=== PATIENT | male | born 1980 | race African-American/Black ===

== ENCOUNTER 2018-07-07 07:13 | Emergency (ER) | payer SELFPAY ==
[~2018-07-07] VITALS: Ht 182.9 cm; Wt 108.9 kg
[2018-07-07 07:52] LABS: BASO # 0.1 x10^3/uL (0.0-0.2); BASO % 1 % (0-3); EOS # 0.1 x10^3/uL (0.0-0.7); EOS % 1 % (0-3); HEMATOCRIT 41.9 % (39.0-53.0); HEMOGLOBIN 13.9 g/dL (13.0-17.5); LYMPH % 23 % (24-48); MEAN CORPUSCULAR HEMOGLOBIN 27 pg (25-35); MEAN CORPUSCULAR HGB CONC 33 g/dL (31-37); MEAN CORPUSCULAR VOLUME 82 fL (79-100); MONO # 0.6 x10^3/uL (0.0-1.1); MONO % 7 % (0-9); NEUT # 6.1 x10^3uL (1.8-7.7); NEUT % 68 % (31-73); PLATELET COUNT 246 x10^3/uL (140-400); RED BLOOD COUNT 5.12 x10^6/uL (4.30-5.70); RED CELL DISTRIBUTION WIDTH 14.5 % (11.5-14.5); WHITE BLOOD COUNT 8.9 x10^3/uL (4.0-11.0)
--- NOTE | 2018-07-07 07:59 | EKG ---
[facility] [address] [place] [address] Test Date: 2018-07-07 Test Time: 07:53:17 Pat Name: ROSALIA PENA Department: Room: Gender: M Supervisor Felting: : 1980 Requested By: JOSHUA WADDELL Order Number: [id number] Reading MD: Measurements Intervals [place] Rate: 107 P: 64 CA: 142 QRS: 76 QRSD: 84 T: 16 QT: 340 QTc: 459 Interpretive Statements SINUS TACHYCARDIA QRS(T) CONTOUR ABNORMALITY CONSIDER ANTEROLATERAL MYOCARDIAL DAMAGE POSSIBLY ABNORMAL ECG RI6.01 No previous ECG available for comparison
[2018-07-07 08:03] LABS: CREATININE 1.3 mg/dL (0.7-1.3); GFR 61.1; POTASSIUM 3.4 mmol/L (3.5-5.1)
[2018-07-07 08:09] LABS: ALBUMIN 3.7 g/dL (3.4-5.0); ALBUMIN/GLOBULIN RATIO 0.9 (1.0-1.7); MAGNESIUM 1.9 mg/dL (1.8-2.4); TOTAL BILIRUBIN 0.2 mg/dL (0.2-1.0)
[2018-07-07 09:57] LABS: BILIRUBIN,URINE NEGATIVE (NEG); CLARITY,URINE CLEAR; COLOR,URINE YELLOW; NITRITE,URINE NEGATIVE (NEG); PROTEIN,URINE NEGATIVE (NEG-TRACE)
[2018-07-07 10:05] LABS: BACTERIA,URINE MODERATE /HPF (0-FEW); SQUAMOUS EPITHELIAL CELL,UR OCC /LPF
[2018-07-07 10:06] LABS: BARBITURATES NEG (NEG); BENZODIAZEPINES NEG (NEG); CANNABINOIDS NEG (NEG); COCAINE NEG (NEG); METHADONE NEG (NEG); OPIATES NEG (NEG); PHENCYCLIDINE POS (NEG); TRICHOMONAS,URINE PRESENT
[2018-07-07 10:07] LABS: AMPHETAMINE/METHAMPHETAMINE NEG (NEG)
[2018-07-07 11:20] VITALS: BP 145/86
--- NOTE | 2018-07-07 11:22 | PHYS DOC ---
Past Medical History Past Medical History: No Pertinent History Past Surgical History: No Surgical History Additional Information: 5 CIGS/DAY Alcohol Use: Rarely Drug Use: Phencyclidine Adult General Chief Complaint Chief Complaint: ALTERED MENTAL STATUS HPI HPI Patient is a 38-year-old male who presents via EMS after reportedly being found running around naked near high school. Patient states that he had a pretty rough shift and so he decided to go home and smoke some "wet". EMS reports that initially patient was little combative but rapidly calmed down. At this time, patient does not recall the incident. He denies any chest pain or shortness of breath. Denies any headache or weakness. Review of Systems Review of Systems Constitutional: Denies fever or chills [] Eyes: Denies change in visual acuity, redness, or eye pain [] Respiratory: Denies cough or shortness of breath [] Cardiovascular: No additional information not addressed in HPI [] GI: Denies abdominal pain, nausea, vomiting or diarrhea [] Musculoskeletal: Denies back pain or joint pain [] All other systems were reviewed and found to be within normal limits, except as documented in this note. Allergies Allergies Allergies Coded Allergies Type Severity Reaction Last Updated Verified No Known Drug Allergies 07/07/18 No Physical Exam Physical Exam Constitutional: Well developed, well nourished, no acute distress, non-toxic appearance. [] HENT: Normocephalic, atraumatic, bilateral external ears normal, oropharynx moist, no oral exudates, nose normal. [] Eyes: PERRLA, EOMI, conjunctiva normal, no discharge. [] Neck: Normal range of motion, no tenderness, supple, no stridor. [] Cardiovascular: Regular rate and rhythm, no murmur [] Lungs & Thorax: Bilateral breath sounds clear to auscultation [] Abdomen: Bowel sounds normal, soft, no tenderness. [] Skin: Warm, dry, no erythema, no rash. [] Extremities: No tenderness, no cyanosis, no clubbing, ROM intact, no edema. [] Neurologic: Alert and oriented X 3, normal motor function, normal sensory function, no focal deficits noted. [] Psychologic: Affect normal, mood normal. [] Current Patient Data Vital Signs Vital Signs Date Time Temp Pulse Resp B/P (MAP) Pulse Ox O2 Delivery O2 Flow Rate FiO2 07/07/18 11:20 79 18 98 12/20/18 07:20 97.7 157/92 (113) Room Air 97.7 Lab Values Laboratory Tests Test 07/07/18 07:41 07/07/18 09:40 White Blood Count 8.9 x10^3/uL (4.0-11.0) Red Blood Count 5.12 x10^6/uL (4.30-5.70) Hemoglobin 13.9 g/dL (13.0-17.5) Hematocrit 41.9 % (39.0-53.0) Mean Corpuscular Volume 82 fL (79-100) Mean Corpuscular Hemoglobin 27 pg (25-35) Mean Corpuscular Hemoglobin Concent 33 g/dL (31-37) Red Cell Distribution Width 14.5 % (11.5-14.5) Platelet Count 246 x10^3/uL (140-400) Neutrophils (%) (Auto) 68 % (31-73) Lymphocytes (%) (Auto) 23 % (24-48) L Monocytes (%) (Auto) 7 % (0-9) Eosinophils (%) (Auto) 1 % (0-3) Basophils (%) (Auto) 1 % (0-3) Neutrophils # (Auto) 6.1 x10^3uL (1.8-7.7) Lymphocytes # (Auto) 2.0 x10^3/uL (1.0-4.8) Monocytes # (Auto) 0.6 x10^3/uL (0.0-1.1) Eosinophils # (Auto) 0.1 x10^3/uL (0.0-0.7) Basophils # (Auto) 0.1 x10^3/uL (0.0-0.2) Sodium Level 141 mmol/L (136-145) Potassium Level 3.4 mmol/L (3.5-5.1) L Chloride Level 102 mmol/L (98-107) Carbon Dioxide Level 25 mmol/L (21-32) Anion Gap 14 (6-14) Blood Urea Nitrogen 17 mg/dL (8-26) Creatinine 1.3 mg/dL (0.7-1.3) Estimated GFR (Cockcroft-Gault) 61.1 BUN/Creatinine Ratio 13 (6-20) Glucose Level 152 mg/dL (70-99) H Calcium Level 9.0 mg/dL (8.5-10.1) Magnesium Level 1.9 mg/dL (1.8-2.4) Total Bilirubin 0.2 mg/dL (0.2-1.0) Aspartate Amino Transferase (AST) 26 U/L (15-37) Alanine Aminotransferase (ALT) 57 U/L (16-63) Alkaline Phosphatase 109 U/L (46-116) Total Protein 8.0 g/dL (6.4-8.2) Albumin 3.7 g/dL (3.4-5.0) Albumin/Globulin Ratio 0.9 (1.0-1.7) L Ethyl Alcohol Level < 10 mg/dL (0-10) Urine Collection Type Unknown Urine Color Yellow Urine Clarity Clear Urine pH 6.0 Urine Specific [place] 1.015 Urine Protein Negative mg/dL (NEG-TRACE) Urine Glucose (UA) Negative mg/dL (NEG) Urine Ketones (Stick) Negative mg/dL (NEG) Urine Blood Trace (NEG) Urine Nitrite Negative (NEG) Urine Bilirubin Negative (NEG) Urine Urobilinogen Dipstick 1.0 mg/dL (0.2 mg/dL) Urine Leukocyte Esterase Small (NEG) Urine RBC 1-2 /HPF (0-2) Urine WBC 11-20 /HPF (0-4) Urine Squamous Epithelial Cells Occ /LPF Urine Bacteria Moderate /HPF (0-FEW) Urine Trichomonas Present Urine Opiates Screen Neg (NEG) Urine Methadone Screen Neg (NEG) Urine Barbiturates Neg (NEG) Urine Phencyclidine Screen Pos (NEG) Urine Amphetamine/Methamphetamine Neg (NEG) Urine Benzodiazepines Screen Neg (NEG) Urine Cocaine Screen Neg (NEG) Urine Cannabinoids Screen Neg (NEG) Urine Ethyl Alcohol Neg (NEG) Laboratory Tests 07/07/18 07:41 Laboratory Tests 07/07/18 07:41 EKG EKG [] Radiology/Procedures Radiology/Procedures [] Course & Med Decision Making Course & Med Decision Making Pertinent Labs and Imaging studies reviewed. (See chart for details) [] Dragon Disclaimer Dragon Disclaimer This electronic medical record was generated, in whole or in part, using a voice recognition dictation system. Departure Departure Impression: Primary Impression: Phencyclidine abuse Disposition: 01 HOME, SELF-CARE Condition: STABLE Referrals: NO PCP (PCP) Patient Instructions: Drug Abuse, FAQs JOSHUA WADDELL Jr. DO Jul 07, 2018 11:22
== END 2018-07-07 11:30 | disposition home or self-care (01) ==
LOC: ER 07:13
DX: F16.10 Hallucinogen abuse, uncomplicated (principal); F10.20 Alcohol dependence, uncomplicated; F17.210 Nicotine dependence, cigarettes, uncomplicated
CPT/HCPCS: 36415; 80053; 80307; 81001; 83735; 85025; 87086; 93005; 99284; G0480

== ENCOUNTER 2020-04-14 23:34 | Emergency (ER) | payer SELFPAY ==
[~2020-04-14] VITALS: Ht 185.4 cm; Wt 104.5 kg
[2020-04-14 23:55] VITALS: BP 158/92
--- NOTE | 2020-04-15 | PHYS DOC ---
Past Medical History Past Medical History: No Pertinent History Past Surgical History: No Surgical History Smoking Status: Current Every Day Smoker Alcohol Use: Rarely Drug Use: Phencyclidine General Adult EDM: Chief Complaint: DRUG ABUSE HPI: HPI: Patient is a 39 year old male presents via ems for evaluation due to altered mental status. 911 was call because patient was found naked on a porch. On arrival patient a/ox4- Patient admitted to smoking PCP prior to arrival. He states he was on his own porch and that his cloths are inside the house. Patient states he normally smokes 1 "stick" and that it should not have "messed him up" Patient this drugs could have possibly been laced with something else or stronger than normal. Patient has no complaints at this time. Review of Systems: Review of Systems: Constitutional: Denies fever or chills. [] Eyes: Denies change in visual acuity. [] HENT: Denies nasal congestion or sore throat. [] Respiratory: Denies cough or shortness of breath. [] Cardiovascular: Denies chest pain or edema. [] GI: Denies abdominal pain, nausea, vomiting, bloody stools or diarrhea. [] : Denies dysuria. [] Musculoskeletal: Denies back pain or joint pain. [] Integument: Denies rash. [] Neurologic: Denies headache, focal weakness or sensory changes. [] Endocrine: Denies polyuria or polydipsia. [] Lymphatic: Denies swollen glands. [] Psychiatric: Denies depression or anxiety. [] Heart Score: Risk Factors: Risk Factors: DM, Current or recent (<one month) smoker, HTN, HLP, family history of CAD, obesity. Risk Scores: Score 0 - 3: 2.5% MACE over next 6 weeks - Discharge Home Score 4 - 6: 20.3% MACE over next 6 weeks - Admit for Clinical Observation Score 7 - 10: 72.7% MACE over next 6 weeks - Early Invasive Strategies Allergies: Allergies: Allergies Coded Allergies Type Severity Reaction Last Updated Verified No Known Drug Allergies 07/07/18 No Physical Exam: PE: Constitutional: Well developed, well nourished, no acute distress, non-toxic appearance. [] HENT: Normocephalic, atraumatic, bilateral external ears normal, oropharynx moist, no oral exudates, nose normal. [] Eyes: PERRLA, EOMI, conjunctiva normal, no discharge. [] Neck: Normal range of motion, no tenderness, supple, no stridor. [] Cardiovascular:Heart rate regular rhythm, no murmur [] Lungs & Thorax: Bilateral breath sounds clear to auscultation [] Abdomen: Bowel sounds normal, soft, no tenderness, no masses, no pulsatile masses. [] Skin: Warm, dry, no erythema, no rash. [] Back: No tenderness, no CVA tenderness. [] Extremities: No tenderness, no cyanosis, no clubbing, ROM intact, no edema. [] Neurologic: Alert and oriented X 3, normal motor function, normal sensory function, no focal deficits noted. [] Psychologic: Affect normal, judgement normal, mood normal. [] Current Patient Data: Vital Signs: Vital Signs Date Time Temp Pulse Resp B/P (MAP) Pulse Ox O2 Delivery O2 Flow Rate FiO2 04/14/20 23:35 99.3 102 15 167/105 (125) 98 Room Air 99.3 EKG: EKG: [] Radiology/Procedures: Radiology/Procedures: [] Course & Med Decision Making: Course & Med Decision Making Pertinent Labs and Imaging studies reviewed. (See chart for details) []Patient a/ox4. Admits to smoke PCP prior to arrival. Patient with no complaints. His vital signs are stable. Patient to be discharged home. Lisette Disclaimer: Lisette Disclaimer: This electronic medical record was generated, in whole or in part, using a voice recognition dictation system. Departure Departure Impression: Primary Impression: PCP (phencyclidine) abuse Disposition: HOME/RESIDENCE PRIOR TO ADM Condition: STABLE Patient Instructions: Drug Abuse, FAQs, Altered Mental Status Justicifation of Admission Dx: Justifications for Admission: Justification of Admission Dx: N/A MARLO LYNCH DO Apr 15, 2020 00:00
== END 2020-04-15 00:01 | disposition home or self-care (01) ==
LOC: ER 23:34
DX: F16.10 Hallucinogen abuse, uncomplicated (principal); R41.82 Altered mental status, unspecified; F17.200 Nicotine dependence, unspecified, uncomplicated
CPT/HCPCS: 99283

== ENCOUNTER 2020-04-24 19:04 | Inpatient (IN) | payer SELFPAY ==
[~2020-04-24] VITALS: Ht 185.4 cm; Wt 106.1 kg
[2020-04-24] MEDS ORDERED: ZIPRASIDONE IM 20 MG VIAL. IM ONE (19:15)
--- NOTE | 2020-04-24 19:20 | PHYS DOC ---
Past Medical History Past Medical History: No Pertinent History Past Surgical History: No Surgical History Smoking Status: Current Every Day Smoker Alcohol Use: Rarely Drug Use: Phencyclidine General Adult EDM: Chief Complaint: ALTERED MENTAL STATUS HPI: HPI: 39-year-old male unknown past medical history, brought in by EMS after bystander called 911, found patient acting erratic and disorganized in the streets. Patient became combative upon police arriving at scene and patient was given 250 mg IM of ketamine prior to arrival. Upon ED arrival patient with copious oral secretions, protecting his airway, is nonverbal. Patient is agitated and unable to verbally de-escalate. Patient was medicated for his medical evaluation, his and staff safety. EMS reports temp of 100.4, pt was diaphoretic on scene, suspect wet. Review of Systems: Review of Systems: ROS: Unable to be obtained due to mental status on arrival Heart Score: Risk Factors: Risk Factors: DM, Current or recent (<one month) smoker, HTN, HLP, family history of CAD, obesity. Risk Scores: Score 0 - 3: 2.5% MACE over next 6 weeks - Discharge Home Score 4 - 6: 20.3% MACE over next 6 weeks - Admit for Clinical Observation Score 7 - 10: 72.7% MACE over next 6 weeks - Early Invasive Strategies Current Medications: Current Medications Medications (Trade) Dose Ordered Sig/Jose Start Time Stop Time Status Last Admin Dose Admin Sodium Chloride 1,000 ml @ 1,000 mls/hr 1X ONCE 04/24/20 19:30 04/24/20 20:29 Ziprasidone (Geodon Im) 20 mg 1X ONCE 04/24/20 19:15 04/24/20 19:16 DC 04/24/20 19:13 20 MG Allergies: Allergies: Allergies Coded Allergies Type Severity Reaction Last Updated Verified No Known Drug Allergies 07/07/18 No Physical Exam: PE: Constitutional: afebrile, obese HENT: Normocephalic, atraumatic, bilateral external ears normal, oropharynx moist, increase oral secretions, Eyes: PERRLA, EOMI, conjunctiva normal, no discharge. [] Neck: Normal range of motion, no tenderness, supple, no stridor. [] Cardiovascular: Tachycardic, no murmur [] Lungs & Thorax: Bilateral breath sounds clear to auscultation []protecting airway Abdomen: Bowel sounds normal, soft, no tenderness, no masses, no pulsatile masses. [] Skin: Warm, dry, no erythema, no rash. [] Extremities: No tenderness, no cyanosis, no clubbing, ROM intact, no edema. [] no clonus, no rigidity Neurologic: nonverbal on arrival-groans, E2V2M5, GCS9,no focal deficits noted. [] Psychologic: unable to be assessed EKG: EKG: [] Radiology/Procedures: Radiology/Procedures: [] IMAGING REPORT Signed PATIENT: ANASTASIA RICHMOND: [id number] : 1980 LOCATION: ER AGE: 39 SEX: M EXAM STATUS: REG ER ORD. PHYSICIAN: LILY MARCIAL DO REASON: ams PROCEDURE: CT HEAD WO CONTRAST CT head without contrast PQRS statement: CT scans at this facility use dose reduction including either automated exposure control, iterative reconstructions, and /or weight based radiation dosing via mA and kV modification when appropriate to reduce radiation dose to as low as reasonably achievable. HISTORY: Altered mental status. FINDINGS: No intracranial hemorrhage, mass, hydrocephalus, extra-axial fluid collections or infarction. No acute ischemic changes. Orbits, mastoids and bones are unremarkable. Subcentimeter left frontal sinus osteoma. IMPRESSION: No acute abnormality. Electronically signed by: El Barajas MD (04/24/2020 11:03 PM) [facility] [place] DICTATED and SIGNED BY: EL BARAJAS MD DATE: 04/24/20 230 IMAGING REPORT Signed PATIENT: ANASTASIA RICHMOND: [id number] : 1980 LOCATION: ER AGE: 39 SEX: M EXAM STATUS: PRE ER ORD. PHYSICIAN: LILY MARCIAL DO REASON: ams PROCEDURE: CHEST AP ONLY Single view chest dated 04/24/2020. No comparison available. CLINICAL INDICATION: Altered mental status. FINDINGS: Heart size within normal limits. Lungs are clear. No consolidation or pleural effusion. No pneumothorax. IMPRESSION: No acute findings. Electronically signed by: Ephraim Espinoza MD (04/24/2020 7:45 PM) [facility] DICTATED and SIGNED BY: EPHRAIM ESPINOZA MD DATE: 04/24/201944 IMAGING REPORT Signed PATIENT: ANASTASIA RICHMOND: [id number] : 1980 LOCATION: ER AGE: 39 SEX: M EXAM STATUS: REG ER ORD. PHYSICIAN: LILY MARCIAL DO REASON: elbow pain s/p restraints PROCEDURE: ELBOW BILAT 3V Exam: Bilateral elbows 3 views INDICATION: Elbow pain, status post restraints TECHNIQUE: Frontal, lateral and oblique views of the right and left elbow Comparisons: None FINDINGS: Right elbow: Bone mineralization is normal. No acute or healed fractures. Soft tissues are unremarkable. Joint spaces are well-maintained. Left elbow: Bone mineralization is normal. No acute or healed fractures. Soft tissues are unremarkable. Joint spaces are well-maintained. IMPRESSION: 1. No acute osseous abnormality of the right elbow. 2. No acute osseous abnormality of the left elbow. Electronically signed by: Joanna Walker MD (04/24/2020 10:14 PM) [facility] DICTATED and SIGNED BY: JOANNA WALKER MD DATE: 04/24/20 9024 Course & Med Decision Making: Course & Med Decision Making Pertinent Labs and Imaging studies reviewed. (See chart for details) On re-evaluation, pt with [facility], alert and oriented x3, admits to smoking when earlier tonight. No prior history of diabetes. Was informed of concern for DKA-patient accepts plan for admission. Patient also with acute kidney injury, polysubstance abuse, contaminated urinalysis but will treat for UTI. Will admit to ICU for further medical management. I have spoken with the patient and/or caregivers. I have explained the patient's condition, diagnosis and treatment plan based on the information available to me at this time. I have answered the patient's and/or caregivers questions and answered any concerns. The patient and/or caregivers have as good an understanding of the patient's diagnosis, condition and treatment plan as can be expected at this point. The patient has been stabilized within the capability of the emergency department. The patient will be transported for further care and management or will be moved to an observation or inpatient service. I have communicated with the staff or medical practitioner taking over this patient's care. Critical Care: Authorized and Performed by: Lily Marcial DO Total critical care time: approximately 60 minutes Due to a high probability of clinically significant, life threatening deterioration, the patient required my highest level of preparedness to intervene emergently and I personally spent this critical care time directly and personally managing the patient. This critical care time included obtaining a history; examining the patient; pulse oximetry; ventilator management if necessary; ordering and review of studies; arranging urgent treatment with development of a management plan; evaluation of patient's response to treatment; frequent reassessment; discussion with patient/family; and, discussions with other providers. This critical care time was performed to assess and manage the high probability of imminent, life-threatening deterioration that could result in multi-organ failure. It was exclusive of separately billable procedures and treating other patients and teaching time. Please see MDM section and the rest of the note for further information on patient assessment and treatment. Dragon Disclaimer: Dragon Disclaimer: This electronic medical record was generated, in whole or in part, using a voice recognition dictation system. Departure Departure Impression: Primary Impression: DKA (diabetic ketoacidoses) Additional Impressions: SABA (acute kidney injury) Polysubstance abuse UTI (urinary tract infection) Diabetes mellitus, new onset Agitation requiring sedation protocol Disposition: ADMITTED INPATIENT Admitting Physician: LOREN (Dr. Bedoya) Condition: CRITICAL Referrals: NO PCP (PCP) LILY MARCIAL DO Apr 24, 2020 19:20
[2020-04-24] MEDS ORDERED: IV NORMAL SALINE 1000ML BAG 1,000 ML IV ONE ×2 (19:30→21:00)
[2020-04-24 19:32] LABS: BASO # 0.2 x10^3/uL (0.0-0.2); BASO % 1 % (0-3); EOS # 0.2 x10^3/uL (0.0-0.7); EOS % 1 % (0-3); HEMATOCRIT 54.8 % (39.0-53.0); HEMOGLOBIN 17.2 g/dL (13.0-17.5); LYMPH # 5.8 x10^3/uL (1.0-4.8); LYMPH % 40 % (24-48); MEAN CORPUSCULAR HEMOGLOBIN 27 pg (25-35); MEAN CORPUSCULAR HGB CONC 31 g/dL (31-37); MEAN CORPUSCULAR VOLUME 87 fL (79-100); MONO # 1.2 x10^3/uL (0.0-1.1); MONO % 8 % (0-9); NEUT # 7.1 x10^3/uL (1.8-7.7); NEUT % 50 % (31-73); PLATELET COUNT 315 x10^3/uL (140-400); RED BLOOD COUNT 6.28 x10^6/uL (4.30-5.70); RED CELL DISTRIBUTION WIDTH 14.7 % (11.5-14.5); WHITE BLOOD COUNT 14.4 x10^3/uL (4.0-11.0)
--- NOTE | 2020-04-24 19:48 | RAD ---
Single view chest dated 04/24/2020. No comparison available. CLINICAL INDICATION: Altered mental status. FINDINGS: Heart size within normal limits. Lungs are clear. No consolidation or pleural effusion. No pneumothorax. IMPRESSION: No acute findings. Electronically signed by: Ephraim Dong MD (04/24/2020 7:45 PM) [facility]
[2020-04-24 19:52] LABS: ALBUMIN 4.7 g/dL (3.4-5.0); ALBUMIN/GLOBULIN RATIO 0.8 (1.0-1.7); CALCIUM 11.3 mg/dL (8.5-10.1); GFR 44.8; POTASSIUM 4.6 mmol/L (3.5-5.1); TOTAL BILIRUBIN 0.2 mg/dL (0.2-1.0); TOTAL PROTEIN 10.3 g/dL (6.4-8.2)
[2020-04-24 19:58] LABS: AMPHETAMINE/METHAMPHETAMINE NEG (NEG); BARBITURATES NEG (NEG); BENZODIAZEPINES NEG (NEG); CANNABINOIDS POS (NEG); COCAINE POS (NEG); METHADONE NEG (NEG); OPIATES NEG (NEG); PHENCYCLIDINE POS (NEG)
[2020-04-24 20:53] LABS: BILIRUBIN,URINE SMALL (NEG); CLARITY,URINE CLEAR; COLOR,URINE YELLOW; NITRITE,URINE NEGATIVE (NEG); PH,URINE 5.5 (<5.0-8.0); PROTEIN,URINE 30 mg/dL (NEG-TRACE)
[2020-04-24 20:58] LABS: WBC,URINE 20-40 /HPF (0-4)
[2020-04-24 20:59] LABS: TRICHOMONAS,URINE PRESENT
[2020-04-24] MEDS ORDERED: diphenhydrAMINE 50 MG/ML VIAL IVP ONE (21:00)
[2020-04-24] MEDS ORDERED: MIDAZOLAM HCL/PF 5 MG/5 ML VIAL. IV ONE (21:00)
[2020-04-24 21:01] LABS: BACTERIA,URINE FEW /HPF (0-FEW)
[2020-04-24 21:01] LABS: MAGNESIUM 3.5 mg/dL (1.8-2.4); PHOSPHORUS 2.1 mg/dL (2.6-4.7)
[2020-04-24 21:02] LABS: HYALINE CASTS, URINE OCCASIONAL /HPF
[2020-04-24 21:15] LABS: ISTAT HCO3 VEN 15 mmol/L (24-28); ISTAT PCO2 VEN 35 mmHg (41-51); ISTAT PH VEN 7.25 (7.32-7.42); ISTAT PO2 VEN 44 mmHg (20-40); ISTAT TCO2 VEN 16 mmol/L (21-32)
[2020-04-24 21:16] LABS: FIO2 VENOUS ISTAT 21; ISTAT SAT O2 VEN 73 %
[2020-04-24] MEDS ORDERED: MORPHINE SULFATE 2 MG/ML VIAL. IV PRN (22:00)
[2020-04-24] MEDS ORDERED: INSULIN,REGULAR 100 UNIT DRIP 100 ML IV ONE (22:00)
[2020-04-24] MEDS ORDERED: ONDANSETRON PF 4 MG/2 ML VIAL. IV PRN (22:00)
--- NOTE | 2020-04-24 22:17 | RAD ---
Exam: Bilateral elbows 3 views INDICATION: Elbow pain, status post restraints TECHNIQUE: Frontal, lateral and oblique views of the right and left elbow Comparisons: None FINDINGS: Right elbow: Bone mineralization is normal. No acute or healed fractures. Soft tissues are unremarkable. Joint spaces are well-maintained. Left elbow: Bone mineralization is normal. No acute or healed fractures. Soft tissues are unremarkable. Joint spaces are well-maintained. IMPRESSION: 1. No acute osseous abnormality of the right elbow. 2. No acute osseous abnormality of the left elbow. Electronically signed by: Joanna Shane MD (04/24/2020 10:14 PM) [facility]
--- NOTE | 2020-04-24 23:07 | RAD ---
CT head without contrast PQRS statement: CT scans at this facility use dose reduction including either automated exposure control, iterative reconstructions, and /or weight based radiation dosing via mA and kV modification when appropriate to reduce radiation dose to as low as reasonably achievable. HISTORY: Altered mental status. FINDINGS: No intracranial hemorrhage, mass, hydrocephalus, extra-axial fluid collections or infarction. No acute ischemic changes. Orbits, mastoids and bones are unremarkable. Subcentimeter left frontal sinus osteoma. IMPRESSION: No acute abnormality. Electronically signed by: Shiva Barajas MD (04/24/2020 11:03 PM) [facility]
[2020-04-25] VITALS (12 sets, daily range): BP systolic 145–186; BP diastolic 83–101
[2020-04-25 01:03] LABS: CALCIUM 9.6 mg/dL (8.5-10.1); GFR 44.8
[2020-04-25] MEDS ORDERED: LABETALOL 20 MG/4 ML DISP.SYRIN. IVP PRN (03:00)
[2020-04-25] MEDS ORDERED: DEXTROSE 50% 25 GM / 50ML DISP.SYRIN. IV PRN (03:00)
[2020-04-25] MEDS ORDERED: IV NORMAL SALINE 1000ML BAG 1,000 ML IV ONE (03:00)
[2020-04-25] MEDS: metroNIDAZOLE 500 MG TABLET PO SCH ×3 (05:54→21:52)
[2020-04-25 07:07] LABS: GFR 44.8; POTASSIUM 4.4 mmol/L (3.5-5.1)
[2020-04-25] MEDS: INSULIN LISPRO 300 UNITS/3 ML VIAL. SQ SCH ×3 (07:51→17:09)
--- NOTE | 2020-04-25 08:33 | PDOC1 ---
History and Physical Date of Admission Date of Admission 04/25/2020 Identification/Chief Complaint Chief Complaint I dont remember what happened Source Source: Chart review, Patient History of Present Illness History of Present Illness Patient is a 39 year old male with no past medical history who was brought to the Er after being found acting erratically as per bystanders. Patient was evaluated in the ED and found to be in DKA, he was subsequently admitted to the ICU and started on DKA protocol. Patient has b\resolved his electrolyte disturbance at the time of my note the patient is snoring quite loudly and seems to even have a pause in his breathing, He certainly has the body habitus for EMILY. Patient denies medical history at this time, he denies recent infections, he denies sick contacts, no polyuria, no polydipsia, no polyphagia. Patient does not take medications at home and this is his debut as a diabetic. He denies headache blurred vision, no dysphagia, no focal neurological deficits. No abdominal pain no nausea vomiting or diarrhea reported, no urinary symptoms, patient will be admitted for further treatment. Past Medical History Past Medical History denies past medical history Past Surgical History Past Surgical History: No pertinent history Family History Family History: No Significant Social History Smoke: No ALCOHOL: none Drugs: None Current Problem List Problem List Problems Medical Problems: (1) Agitation requiring sedation protocol Status: Acute (2) SABA (acute kidney injury) Status: Acute (3) Diabetes mellitus, new onset Status: Acute (4) DKA (diabetic ketoacidoses) Status: Acute (5) Polysubstance abuse Status: Acute (6) UTI (urinary tract infection) Status: Acute Current Medications Current Medications Current Medications Medications (Trade) Dose Ordered Sig/Jose Start Time Stop Time Status Last Admin Dose Admin Dextrose (Dextrose 50%-Water Syringe) 12.5 gm PRN Q15MIN PRN 04/25/20 03:00 Diphenhydramine HCl (Benadryl) 50 mg 1X ONCE 04/24/20 21:00 04/24/20 21:01 DC Insulin Human Lispro (HumaLOG) 0-9 UNITS TIDWMEALS 04/25/20 08:00 04/25/20 07:51 4 UNITS Insulin Human Regular 100 ml @ 0 mls/hr 1X ONCE 04/24/20 22:00 04/25/20 03:03 DC 04/24/20 22:03 0.01 MLS/HR Labetalol HCl (Normodyne Iv Push) 10 mg PRN Q2HR PRN 04/25/20 03:00 Metronidazole (Flagyl) 500 mg Q8HRS 04/25/20 06:00 04/25/20 05:54 500 MG Midazolam HCl (Versed) 4 mg 1X ONCE 04/24/20 21:00 04/24/20 21:01 DC Morphine Sulfate (Morphine Sulfate) 2 mg PRN Q2HR PRN 04/24/20 22:00 04/25/20 21:59 Ondansetron HCl (Zofran) 4 mg PRN Q8HRS PRN 04/24/20 22:00 04/25/20 21:59 Sodium Chloride 1,000 ml @ 200 mls/hr 1X ONCE 04/25/20 03:00 04/25/20 07:59 DC 04/25/20 03:13 200 MLS/HR Ziprasidone (Geodon Im) 20 mg 1X ONCE 04/24/20 19:15 04/24/20 19:16 DC 04/24/20 19:13 20 MG Allergies Allergies Allergies Coded Allergies Type Severity Reaction Last Updated Verified No Known Drug Allergies 07/07/18 No ROS Review of System CONSTITUTIONAL: No fever or chills EYES: No recent changes SKIN: No rash or itching CARDIOVASCULAR: No chest pain, syncope, palpitations, or edema RESPIRATORY: No SOB or cough GASTROINTESTINAL: No nausea, vomiting or abdominal pain NEUROLOGICAL: No headaches or weakness ENDOCRINE: No cold or heat intolerance GENITOURINARY: No urgency or frequency of urination MUSCULOSKELETAL: No back pain or joint pain LYMPHATICS: No enlarged lymph nodes PSYCHIATRIC: No anxiety or depression Physical Exam Physical Exam GEN.: No apparent distress. Alert and oriented. HEENT: Head is normocephalic, atraumatic NECK: Supple. LUNGS: Clear to auscultation. HEART: RRR, S1, S2 present. Peripheral pulses intact ABDOMEN: Soft, nontender. Positive bowel sounds. EXTREMITIES: Without any cyanosis. NEUROLOGIC: Normal speech, normal tone PSYCHIATRIC: Normal affect, normal mood. SKIN: No ulcerations Vitals Vitals Vital Signs Date Time Temp Pulse Resp B/P (MAP) Pulse Ox O2 Delivery O2 Flow Rate FiO2 04/25/20 07:00 99.0 107 18 157/90 (112) 91 Room Air 99.0 10/8/20 03:00 2.0 Labs Labs Laboratory Tests Test 04/24/20 19:22 04/24/20 19:34 04/24/20 20:45 04/24/20 21:53 White Blood Count 14.4 x10^3/uL (4.0-11.0) Red Blood Count 6.28 x10^6/uL (4.30-5.70) Hemoglobin 17.2 g/dL (13.0-17.5) Hematocrit 54.8 % (39.0-53.0) Mean Corpuscular Volume 87 fL (79-100) Mean Corpuscular Hemoglobin 27 pg (25-35) Mean Corpuscular Hemoglobin Concent 31 g/dL (31-37) Red Cell Distribution Width 14.7 % (11.5-14.5) Platelet Count 315 x10^3/uL (140-400) Neutrophils (%) (Auto) 50 % (31-73) Lymphocytes (%) (Auto) 40 % (24-48) Monocytes (%) (Auto) 8 % (0-9) Eosinophils (%) (Auto) 1 % (0-3) Basophils (%) (Auto) 1 % (0-3) Neutrophils # (Auto) 7.1 x10^3/uL (1.8-7.7) Lymphocytes # (Auto) 5.8 x10^3/uL (1.0-4.8) Monocytes # (Auto) 1.2 x10^3/uL (0.0-1.1) Eosinophils # (Auto) 0.2 x10^3/uL (0.0-0.7) Basophils # (Auto) 0.2 x10^3/uL (0.0-0.2) Sodium Level 148 mmol/L (136-145) Potassium Level 4.6 mmol/L (3.5-5.1) Chloride Level 100 mmol/L (98-107) Carbon Dioxide Level 9 mmol/L (21-32) Anion Gap 39 (6-14) Blood Urea Nitrogen 16 mg/dL (8-26) Creatinine 2.0 mg/dL (0.7-1.3) Estimated GFR (Cockcroft-Gault) 44.8 BUN/Creatinine Ratio 8 (6-20) Glucose Level 307 mg/dL (70-99) Calcium Level 11.3 mg/dL (8.5-10.1) Total Bilirubin 0.2 mg/dL (0.2-1.0) Aspartate Amino Transf (AST/SGOT) 20 U/L (15-37) Alanine Aminotransferase (ALT/SGPT) 44 U/L (16-63) Alkaline Phosphatase 160 U/L (46-116) Creatine Kinase 472 U/L (39-308) Total Protein 10.3 g/dL (6.4-8.2) Albumin 4.7 g/dL (3.4-5.0) Albumin/Globulin Ratio 0.8 (1.0-1.7) Ethyl Alcohol Level < 10 mg/dL (0-10) Urine Collection Type U cath Urine Color Yellow Urine Clarity Clear Urine pH 5.5 (<5.0-8.0) Urine Specific Galliano >=1.030 (1.000-1.030) Urine Protein 30 mg/dL (NEG-TRACE) Urine Glucose (UA) Negative mg/dL (NEG) Urine Ketones (Stick) Trace mg/dL (NEG) Urine Blood Negative (NEG) Urine Nitrite Negative (NEG) Urine Bilirubin Small (NEG) Urine Urobilinogen Dipstick 1.0 mg/dL (0.2 mg/dL) Urine Leukocyte Esterase Moderate (NEG) Urine RBC 1-2 /HPF (0-2) Urine WBC 20-40 /HPF (0-4) Urine Squamous Epithelial Cells Mod /LPF Urine Bacteria Few /HPF (0-FEW) Urine Hyaline Casts Occasional /HPF Urine Mucus Mod /LPF Urine Trichomonas Present Urine Opiates Screen Neg (NEG) Urine Methadone Screen Neg (NEG) Urine Barbiturates Neg (NEG) Urine Phencyclidine Screen Pos (NEG) Urine Amphetamine/Methamphetamine Neg (NEG) Urine Benzodiazepines Screen Neg (NEG) Urine Cocaine Screen Pos (NEG) Urine Cannabinoids Screen Pos (NEG) Urine Ethyl Alcohol Neg (NEG) Bedside Venous pH 7.25 (7.32-7.42) Bedside Venous pCO2 35 mmHg (41-51) Bedside Venous pO2 44 mmHg (20-40) Venous Blood HCO3 15 mmol/L (24-28) POC Venous O2 Saturation (Leo) 73 % Bedside FiO2 21 Phosphorus Level 2.1 mg/dL (2.6-4.7) Magnesium Level 3.5 mg/dL (1.8-2.4) Glucose (Fingerstick) 365 mg/dL (70-99) Test 04/24/20 23:11 04/25/20 00:10 04/25/20 00:18 04/25/20 01:23 Glucose (Fingerstick) 270 mg/dL (70-99) 194 mg/dL (70-99) 153 mg/dL (70-99) Sodium Level 140 mmol/L (136-145) Potassium Level 5.0 mmol/L (3.5-5.1) Chloride Level 104 mmol/L (98-107) Carbon Dioxide Level 25 mmol/L (21-32) Anion Gap 11 (6-14) Blood Urea Nitrogen 18 mg/dL (8-26) Creatinine 2.0 mg/dL (0.7-1.3) Estimated GFR (Cockcroft-Gault) 44.8 Glucose Level 201 mg/dL (70-99) Calcium Level 9.6 mg/dL (8.5-10.1) Test 04/25/20 01:47 04/25/20 02:26 04/25/20 04:57 04/25/20 06:00 Lactic Acid Level 2.2 mmol/L (0.4-2.0) 2.2 mmol/L (0.4-2.0) Glucose (Fingerstick) 141 mg/dL (70-99) Sodium Level 142 mmol/L (136-145) Potassium Level 4.4 mmol/L (3.5-5.1) Chloride Level 106 mmol/L (98-107) Carbon Dioxide Level 23 mmol/L (21-32) Anion Gap 13 (6-14) Blood Urea Nitrogen 18 mg/dL (8-26) Creatinine 2.0 mg/dL (0.7-1.3) Estimated GFR (Cockcroft-Gault) 44.8 Glucose Level 140 mg/dL (70-99) Calcium Level 9.0 mg/dL (8.5-10.1) Test 04/25/20 07:48 Glucose (Fingerstick) 157 mg/dL (70-99) Laboratory Tests Test 04/24/20 19:22 04/24/20 19:34 04/24/20 20:45 04/24/20 21:53 White Blood Count 14.4 x10^3/uL (4.0-11.0) Red Blood Count 6.28 x10^6/uL (4.30-5.70) Hemoglobin 17.2 g/dL (13.0-17.5) Hematocrit 54.8 % (39.0-53.0) Mean Corpuscular Volume 87 fL (79-100) Mean Corpuscular Hemoglobin 27 pg (25-35) Mean Corpuscular Hemoglobin Concent 31 g/dL (31-37) Red Cell Distribution Width 14.7 % (11.5-14.5) Platelet Count 315 x10^3/uL (140-400) Neutrophils (%) (Auto) 50 % (31-73) Lymphocytes (%) (Auto) 40 % (24-48) Monocytes (%) (Auto) 8 % (0-9) Eosinophils (%) (Auto) 1 % (0-3) Basophils (%) (Auto) 1 % (0-3) Neutrophils # (Auto) 7.1 x10^3/uL (1.8-7.7) Lymphocytes # (Auto) 5.8 x10^3/uL (1.0-4.8) Monocytes # (Auto) 1.2 x10^3/uL (0.0-1.1) Eosinophils # (Auto) 0.2 x10^3/uL (0.0-0.7) Basophils # (Auto) 0.2 x10^3/uL (0.0-0.2) Sodium Level 148 mmol/L (136-145) Potassium Level 4.6 mmol/L (3.5-5.1) Chloride Level 100 mmol/L (98-107) Carbon Dioxide Level 9 mmol/L (21-32) Anion Gap 39 (6-14) Blood Urea Nitrogen 16 mg/dL (8-26) Creatinine 2.0 mg/dL (0.7-1.3) Estimated GFR (Cockcroft-Gault) 44.8 BUN/Creatinine Ratio 8 (6-20) Glucose Level 307 mg/dL (70-99) Calcium Level 11.3 mg/dL (8.5-10.1) Total Bilirubin 0.2 mg/dL (0.2-1.0) Aspartate Amino Transf (AST/SGOT) 20 U/L (15-37) Alanine Aminotransferase (ALT/SGPT) 44 U/L (16-63) Alkaline Phosphatase 160 U/L (46-116) Creatine Kinase 472 U/L (39-308) Total Protein 10.3 g/dL (6.4-8.2) Albumin 4.7 g/dL (3.4-5.0) Albumin/Globulin Ratio 0.8 (1.0-1.7) Ethyl Alcohol Level < 10 mg/dL (0-10) Urine Collection Type U cath Urine Color Yellow Urine Clarity Clear Urine pH 5.5 (<5.0-8.0) Urine Specific Galliano >=1.030 (1.000-1.030) Urine Protein 30 mg/dL (NEG-TRACE) Urine Glucose (UA) Negative mg/dL (NEG) Urine Ketones (Stick) Trace mg/dL (NEG) Urine Blood Negative (NEG) Urine Nitrite Negative (NEG) Urine Bilirubin Small (NEG) Urine Urobilinogen Dipstick 1.0 mg/dL (0.2 mg/dL) Urine Leukocyte Esterase Moderate (NEG) Urine RBC 1-2 /HPF (0-2) Urine WBC 20-40 /HPF (0-4) Urine Squamous Epithelial Cells Mod /LPF Urine Bacteria Few /HPF (0-FEW) Urine Hyaline Casts Occasional /HPF Urine Mucus Mod /LPF Urine Trichomonas Present Urine Opiates Screen Neg (NEG) Urine Methadone Screen Neg (NEG) Urine Barbiturates Neg (NEG) Urine Phencyclidine Screen Pos (NEG) Urine Amphetamine/Methamphetamine Neg (NEG) Urine Benzodiazepines Screen Neg (NEG) Urine Cocaine Screen Pos (NEG) Urine Cannabinoids Screen Pos (NEG) Urine Ethyl Alcohol Neg (NEG) Bedside Venous pH 7.25 (7.32-7.42) Bedside Venous pCO2 35 mmHg (41-51) Bedside Venous pO2 44 mmHg (20-40) Venous Blood HCO3 15 mmol/L (24-28) POC Venous O2 Saturation (Leo) 73 % Bedside FiO2 21 Phosphorus Level 2.1 mg/dL (2.6-4.7) Magnesium Level 3.5 mg/dL (1.8-2.4) Glucose (Fingerstick) 365 mg/dL (70-99) Test 04/24/20 23:11 04/25/20 00:10 04/25/20 00:18 04/25/20 01:23 Glucose (Fingerstick) 270 mg/dL (70-99) 194 mg/dL (70-99) 153 mg/dL (70-99) Sodium Level 140 mmol/L (136-145) Potassium Level 5.0 mmol/L (3.5-5.1) Chloride Level 104 mmol/L (98-107) Carbon Dioxide Level 25 mmol/L (21-32) Anion Gap 11 (6-14) Blood Urea Nitrogen 18 mg/dL (8-26) Creatinine 2.0 mg/dL (0.7-1.3) Estimated GFR (Cockcroft-Gault) 44.8 Glucose Level 201 mg/dL (70-99) Calcium Level 9.6 mg/dL (8.5-10.1) Test 04/25/20 01:47 04/25/20 02:26 04/25/20 04:57 04/25/20 06:00 Lactic Acid Level 2.2 mmol/L (0.4-2.0) 2.2 mmol/L (0.4-2.0) Glucose (Fingerstick) 141 mg/dL (70-99) Sodium Level 142 mmol/L (136-145) Potassium Level 4.4 mmol/L (3.5-5.1) Chloride Level 106 mmol/L (98-107) Carbon Dioxide Level 23 mmol/L (21-32) Anion Gap 13 (6-14) Blood Urea Nitrogen 18 mg/dL (8-26) Creatinine 2.0 mg/dL (0.7-1.3) Estimated GFR (Cockcroft-Gault) 44.8 Glucose Level 140 mg/dL (70-99) Calcium Level 9.0 mg/dL (8.5-10.1) Test 04/25/20 07:48 Glucose (Fingerstick) 157 mg/dL (70-99) VTE Prophylaxis Ordered VTE Prophylaxis Devices: No VTE Pharmacological Prophylaxi: Yes Assessment/Plan Assessment/Plan DKA Chronic kidney disease stage 3b essential hypertension Obesity with a BMI of 30 lactic acid elevated secondary to DKA Anion gap metabolic acidosis resolved. Plan: start Lantus will start lisinopril and hctz for better bp control statin depening of lipid panel continue with diabetic diet diabetic education will check hba1c lipid panel for risk stratification further recommendations based on clinical course. DVT prophylaxis: lovenox Justifications for Admission Other Justification ZABRINA MUNSON MD Apr 25, 2020 08:33
[2020-04-25] MEDS: LISINOPRIL 20 MG TABLET PO SCH (09:58)
[2020-04-25] MEDS: hydroCHLOROthiazide 12.5 MG CAPSULE PO SCH (09:58)
[2020-04-25] MEDS: INSULIN GLARGINE SYRINGE. SQ SCH ×2 (10:02→21:16)
--- NOTE | 2020-04-25 11:40 | NUR ---
SS following for discharge planning. SS reviewed pt chart and discussed with pt RN. Pt is from home and is currently requiring oxygen. Pt DKA. Pt positive for PCP, Cocaine, and Marijuana. Pat Team referral made for substance abuse. Mikel from PAT team meeting with pt for assessment and recommendations. SS will continue to follow for discharge planning.
--- NOTE | 2020-04-25 14:50 | NUR ---
Pt transferred from ICU room 106 to room 422. Report called to JOSÉ LUIS Wiseman. All belongings left with patient at the time of transfer. Pt girlfriend, Lily, notified of transfer via [phone].
--- NOTE | 2020-04-25 15:00 | NUR ---
assumed care at this time. transferred to room 422. incontinent of urine ; new gown given.
[2020-04-25] MEDS: LACTOBACILLUS RHAMNOSUS GG 1 CAPSULE. PO SCH (21:10)
[2020-04-25 23:08] LABS: HEMOGLOBIN A1C 7.6 % (4.8-5.6)
[2020-04-26 03:05] VITALS: BP 161/94
[2020-04-26] MEDS: metroNIDAZOLE 500 MG TABLET PO SCH (06:10)
[2020-04-26 07:05] VITALS: BP 151/100
--- NOTE | 2020-04-26 08:57 | PDOC ---
PROGRESS NOTES Date of Service: DATE: 04/26/20 TIME: 08:57 Chief Complaint Chief Complaint VTE Prophylaxis Ordered VTE Prophylaxis Devices: No VTE Pharmacological Prophylaxi: Yes DISCHARGE DX Assessment/Plan DKA Chronic kidney disease stage 3b essential hypertension Obesity with a BMI of 30 lactic acid elevated secondary to DKA Anion gap metabolic acidosis resolved. cocaine AND THC ABUSE PCP ABUSE UTI TOXIC METABOLIC ENCEPHALOPATHY, RESOLVED Plan: start Lantus will start lisinopril and hctz for better bp control statin depening of lipid panel continue with diabetic diet diabetic education will check hba1c lipid panel for risk stratification further recommendations based on clinical course. DVT prophylaxis: lovenox ATTEND NARCOTICS ANONYMOUS DAILY AUGMENTIN 500MG PO BID X 10 DAYS D/C PLANNING 28 MIN History of Present Illness History of Present Illness Identification/Chief Complaint Chief Complaint I dont remember what happened Source Source: Chart review, Patient History of Present Illness History of Present Illness Patient is a 39 year old male with no past medical history who was brought to the Er after being found acting erratically as per bystanders. Patient was evaluated in the ED and found to be in DKA, he was subsequently admitted to the ICU and started on DKA protocol. Patient has b\resolved his electrolyte disturbance at the time of my note the patient is snoring quite loudly and seems to even have a pause in his breathing, He certainly has the body habitus for EMILY. Patient denies medical history at this time, he denies recent infections, he denies sick contacts, no polyuria, no polydipsia, no polyphagia. Patient does not take medications at home and this is his debut as a diabetic. He denies headache blurred vision, no dysphagia, no focal neurological deficits. No abdominal pain no nausea vomiting or diarrhea reported, no urinary symptoms, patient will be admitted for further treatment. Past Medical History Past Medical History denies past medical history Past Surgical History Past Surgical History: No pertinent history Family History Family History: No Significant Social History Smoke: No ALCOHOL: none Drugs: None Current Problem List Problem List Problems Medical Problems: (1) Agitation requiring sedation protocol Status: Acute (2) SABA (acute kidney injury) Status: Acute (3) Diabetes mellitus, new onset Status: Acute (4) DKA (diabetic ketoacidoses) Status: Acute (5) Polysubstance abuse Status: Acute (6) UTI (urinary tract infection) Status: Acute Vitals Vitals Vital Signs Date Time Temp Pulse Resp B/P (MAP) Pulse Ox O2 Delivery O2 Flow Rate FiO2 04/26/20 03:05 98.5 98 20 161/94 (116) 97 Room Air 98.5 04/25/20 08:00 2.0 Physical Exam Physical Exam Physical Exam Physical Exam GEN.: No apparent distress. Alert and oriented. HEENT: Head is normocephalic, atraumatic NECK: Supple. LUNGS: Clear to auscultation. HEART: RRR, S1, S2 present. Peripheral pulses intact ABDOMEN: Soft, nontender. Positive bowel sounds. EXTREMITIES: Without any cyanosis. NEUROLOGIC: Normal speech, normal tone PSYCHIATRIC: Normal affect, normal mood. SKIN: No ulcerations General: Alert, Oriented X3, Cooperative, No acute distress Heart: Regular rate, Normal S1 Lungs: Clear Abdomen: Normal bowel sounds, Soft, No tenderness Extremities: No cyanosis, No edema Skin: No significant lesion Labs LABS Laboratory Tests Test 04/25/20 11:57 04/25/20 16:46 04/25/20 20:29 Glucose (Fingerstick) 145 mg/dL (70-99) 213 mg/dL (70-99) 193 mg/dL (70-99) Assessment and Plan Assessmemt and Plan Problems Medical Problems: (1) Agitation requiring sedation protocol Status: Acute (2) SABA (acute kidney injury) Status: Acute (3) Diabetes mellitus, new onset Status: Acute (4) DKA (diabetic ketoacidoses) Status: Acute (5) Polysubstance abuse Status: Acute (6) UTI (urinary tract infection) Status: Acute Comment Review of Relevant I have reviewed the following items lyn (where applicable) has been applied. Labs Laboratory Tests Test 04/24/20 19:22 04/24/20 19:34 04/24/20 20:45 04/24/20 21:53 White Blood Count 14.4 x10^3/uL (4.0-11.0) Red Blood Count 6.28 x10^6/uL (4.30-5.70) Hemoglobin 17.2 g/dL (13.0-17.5) Hematocrit 54.8 % (39.0-53.0) Mean Corpuscular Volume 87 fL (79-100) Mean Corpuscular Hemoglobin 27 pg (25-35) Mean Corpuscular Hemoglobin Concent 31 g/dL (31-37) Red Cell Distribution Width 14.7 % (11.5-14.5) Platelet Count 315 x10^3/uL (140-400) Neutrophils (%) (Auto) 50 % (31-73) Lymphocytes (%) (Auto) 40 % (24-48) Monocytes (%) (Auto) 8 % (0-9) Eosinophils (%) (Auto) 1 % (0-3) Basophils (%) (Auto) 1 % (0-3) Neutrophils # (Auto) 7.1 x10^3/uL (1.8-7.7) Lymphocytes # (Auto) 5.8 x10^3/uL (1.0-4.8) Monocytes # (Auto) 1.2 x10^3/uL (0.0-1.1) Eosinophils # (Auto) 0.2 x10^3/uL (0.0-0.7) Basophils # (Auto) 0.2 x10^3/uL (0.0-0.2) Sodium Level 148 mmol/L (136-145) Potassium Level 4.6 mmol/L (3.5-5.1) Chloride Level 100 mmol/L (98-107) Carbon Dioxide Level 9 mmol/L (21-32) Anion Gap 39 (6-14) Blood Urea Nitrogen 16 mg/dL (8-26) Creatinine 2.0 mg/dL (0.7-1.3) Estimated GFR (Cockcroft-Gault) 44.8 BUN/Creatinine Ratio 8 (6-20) Glucose Level 307 mg/dL (70-99) Calcium Level 11.3 mg/dL (8.5-10.1) Total Bilirubin 0.2 mg/dL (0.2-1.0) Aspartate Amino Transf (AST/SGOT) 20 U/L (15-37) Alanine Aminotransferase (ALT/SGPT) 44 U/L (16-63) Alkaline Phosphatase 160 U/L (46-116) Creatine Kinase 472 U/L (39-308) Total Protein 10.3 g/dL (6.4-8.2) Albumin 4.7 g/dL (3.4-5.0) Albumin/Globulin Ratio 0.8 (1.0-1.7) Ethyl Alcohol Level < 10 mg/dL (0-10) Urine Collection Type U cath Urine Color Yellow Urine Clarity Clear Urine pH 5.5 (<5.0-8.0) Urine Specific [place] >=1.030 (1.000-1.030) Urine Protein 30 mg/dL (NEG-TRACE) Urine Glucose (UA) Negative mg/dL (NEG) Urine Ketones (Stick) Trace mg/dL (NEG) Urine Blood Negative (NEG) Urine Nitrite Negative (NEG) Urine Bilirubin Small (NEG) Urine Urobilinogen Dipstick 1.0 mg/dL (0.2 mg/dL) Urine Leukocyte Esterase Moderate (NEG) Urine RBC 1-2 /HPF (0-2) Urine WBC 20-40 /HPF (0-4) Urine Squamous Epithelial Cells Mod /LPF Urine Bacteria Few /HPF (0-FEW) Urine Hyaline Casts Occasional /HPF Urine Mucus Mod /LPF Urine Trichomonas Present Urine Opiates Screen Neg (NEG) Urine Methadone Screen Neg (NEG) Urine Barbiturates Neg (NEG) Urine Phencyclidine Screen Pos (NEG) Urine Amphetamine/Methamphetamine Neg (NEG) Urine Benzodiazepines Screen Neg (NEG) Urine Cocaine Screen Pos (NEG) Urine Cannabinoids Screen Pos (NEG) Urine Ethyl Alcohol Neg (NEG) Bedside Venous pH 7.25 (7.32-7.42) Bedside Venous pCO2 35 mmHg (41-51) Bedside Venous pO2 44 mmHg (20-40) Venous Blood HCO3 15 mmol/L (24-28) POC Venous O2 Saturation (Leo) 73 % Bedside FiO2 21 Phosphorus Level 2.1 mg/dL (2.6-4.7) Magnesium Level 3.5 mg/dL (1.8-2.4) Glucose (Fingerstick) 365 mg/dL (70-99) Test 04/24/20 23:11 04/25/20 00:10 04/25/20 00:18 04/25/20 01:23 Glucose (Fingerstick) 270 mg/dL (70-99) 194 mg/dL (70-99) 153 mg/dL (70-99) Sodium Level 140 mmol/L (136-145) Potassium Level 5.0 mmol/L (3.5-5.1) Chloride Level 104 mmol/L (98-107) Carbon Dioxide Level 25 mmol/L (21-32) Anion Gap 11 (6-14) Blood Urea Nitrogen 18 mg/dL (8-26) Creatinine 2.0 mg/dL (0.7-1.3) Estimated GFR (Cockcroft-Gault) 44.8 Glucose Level 201 mg/dL (70-99) Calcium Level 9.6 mg/dL (8.5-10.1) Test 04/25/20 01:47 04/25/20 02:26 04/25/20 04:57 04/25/20 06:00 Lactic Acid Level 2.2 mmol/L (0.4-2.0) 2.2 mmol/L (0.4-2.0) Glucose (Fingerstick) 141 mg/dL (70-99) Sodium Level 142 mmol/L (136-145) Potassium Level 4.4 mmol/L (3.5-5.1) Chloride Level 106 mmol/L (98-107) Carbon Dioxide Level 23 mmol/L (21-32) Anion Gap 13 (6-14) Blood Urea Nitrogen 18 mg/dL (8-26) Creatinine 2.0 mg/dL (0.7-1.3) Estimated GFR (Cockcroft-Gault) 44.8 Glucose Level 140 mg/dL (70-99) Hemoglobin A1c 7.6 % (4.8-5.6) Calcium Level 9.0 mg/dL (8.5-10.1) Triglycerides Level 227 mg/dL (0-150) Cholesterol Level 227 mg/dL (0-200) LDL Cholesterol, Calculated 144 mg/dL (0-100) VLDL Cholesterol, Calculated 45 mg/dL (0-40) Non-HDL Cholesterol Calculated 189 mg/dL (0-129) HDL Cholesterol 38 mg/dL (40-60) Cholesterol/HDL Ratio 6.0 Test 04/25/20 07:48 04/25/20 11:57 04/25/20 16:46 04/25/20 20:29 Glucose (Fingerstick) 157 mg/dL (70-99) 145 mg/dL (70-99) 213 mg/dL (70-99) 193 mg/dL (70-99) Laboratory Tests Test 04/25/20 11:57 04/25/20 16:46 04/25/20 20:29 Glucose (Fingerstick) 145 mg/dL (70-99) 213 mg/dL (70-99) 193 mg/dL (70-99) Microbiology 04/25/20 Blood Culture - Preliminary, Resulted NO GROWTH AFTER 1 DAY Medications Current Medications Ziprasidone (Geodon Im) 20 mg 1X ONCE IM Last administered on 04/24/20at 19:13; Start 04/24/20 at 19:15; Stop 04/24/20 at 19:16; Status DC Sodium Chloride 1,000 ml @ 1,000 mls/hr 1X ONCE IV Last administered on 04/24/20at 19:40; Start 04/24/20 at 19:30; Stop 04/24/20 at 20:29; Status DC Midazolam HCl (Versed) 4 mg 1X ONCE IV ; Start 04/24/20 at 21:00; Stop 04/24/20 at 21:01; Status DC Diphenhydramine HCl (Benadryl) 50 mg 1X ONCE IVP ; Start 04/24/20 at 21:00; Stop 04/24/20 at 21:01; Status DC Sodium Chloride 1,000 ml @ 1,000 mls/hr 1X ONCE IV Last administered on 04/24/20at 20:53; Start 04/24/20 at 21:00; Stop 04/24/20 at 21:59; Status DC Insulin Human Regular 100 ml @ 0 mls/hr 1X ONCE IV Last administered on 04/24/20at 22:03; Start 04/24/20 at 22:00; Stop 04/25/20 at 03:03; Status DC Ondansetron HCl (Zofran) 4 mg PRN Q8HRS PRN IV NAUSEA/VOMITING 1ST CHOICE; Start 04/24/20 at 22:00; Stop 04/25/20 at 21:59; Status DC Morphine Sulfate (Morphine Sulfate) 2 mg PRN Q2HR PRN IV SEVERE PAIN 7-10; Start 04/24/20 at 22:00; Stop 04/25/20 at 21:59; Status DC Sodium Chloride 1,000 ml @ 200 mls/hr 1X ONCE IV Last administered on 04/25/20at 03:13; Start 04/25/20 at 03:00; Stop 04/25/20 at 07:59; Status DC Metronidazole (Flagyl) 500 mg Q8HRS PO Last administered on 04/26/20at 06:10; Start 04/25/20 at 06:00 Insulin Human Lispro (HumaLOG) 0-9 UNITS TIDWMEALS SQ Last administered on 04/25/20at 17:09; Start 04/25/20 at 08:00 Dextrose (Dextrose 50%-Water Syringe) 12.5 gm PRN Q15MIN PRN IV SEE COMMENTS; Start 04/25/20 at 03:00 Labetalol HCl (Normodyne Iv Push) 10 mg PRN Q2HR PRN IVP HYPERTENSION; Start 04/25/20 at 03:00 Insulin Glargine (Lantus Syringe) 20 unit BID SQ Last administered on 04/25/20at 21:16; Start 04/25/20 at 09:00 Lisinopril (Prinivil) 20 mg DAILY PO Last administered on 04/25/20at 09:58; Start 04/25/20 at 09:00 Hydrochlorothiazide (Microzide) 12.5 mg DAILY PO Last administered on 04/25/20at 09:58; Start 04/25/20 at 09:00 Lactobacillus Rhamnosus (Culturelle) 1 cap BID PO Last administered on 04/25/20at 21:10; Start 04/25/20 at 21:00 Vitals/I & O Vital Sign - Last 24 Hours 04/25/20 04/25/20 04/25/20 04/25/20 09:58 11:00 15:00 15:01 Temp 98.2 97.9 98.2 97.9 Pulse 106 108 83 Resp 20 20 B/P (MAP) 148/85 157/88 (111) 149/83 (105) Pulse Ox 97 96 O2 Delivery Room Air Room Air Room Air 04/25/20 04/25/20 04/25/20 04/26/20 19:35 19:58 23:17 03:05 Temp 99.5 98.8 98.5 99.5 98.8 98.5 Pulse 106 103 98 Resp 20 18 20 B/P (MAP) 150/98 (115) 145/97 (113) 161/94 (116) Pulse Ox 98 97 97 O2 Delivery Room Air Room Air Room Air Room Air Intake and Output 04/25/20 04/25/20 04/26/20 15:00 23:00 07:00 Intake Total 1140 ml 480 ml 480 ml Output Total 1100 ml Balance 40 ml 480 ml 480 ml Justicifation of Admission Dx: Justifications for Admission: Justification of Admission Dx: N/A ROSALIND HARO MD Apr 26, 2020 08:57
[2020-04-26] MEDS: INSULIN LISPRO 300 UNITS/3 ML VIAL. SQ SCH ×2 (08:59→12:02)
[2020-04-26] MEDS: LACTOBACILLUS RHAMNOSUS GG 1 CAPSULE. PO SCH (09:00)
[2020-04-26] MEDS: hydroCHLOROthiazide 12.5 MG CAPSULE PO SCH (09:00)
[2020-04-26] MEDS: LISINOPRIL 20 MG TABLET PO SCH (09:01)
[2020-04-26] MEDS: INSULIN GLARGINE SYRINGE. SQ SCH (09:07)
--- NOTE | 2020-04-26 09:55 | NUR ---
SW following. Discussed with RN, pt from home with girlfriend, room air, ADA diet. Pt seen by Mikel GONZALEZ) yesterday in ICU. Pt denied his drug use is a problem and denied it being out of control. Pt denied and hx of MH or SI. Pt provided with resources for RADAC and drug abuse. Pt is a new diabetic, SW will continue to follow for any discharge planning needs. Med Assist following for self pay status.
--- NOTE | 2020-04-26 10:41 | NUR ---
Charted BP incorrectly on eMAR during medication administration. Actual BP 151/100
[2020-04-26 11:05] VITALS: BP 148/103
--- NOTE | 2020-04-26 11:23 | PDOC3 ---
Discharge Summary Date of Admission: Apr 24, 2020 Date of Discharge: Apr 26, 2020 Follow-Up: 1-2 days, 3-5 days Admitting Diagnosis comment: DISCHARGE DX Assessment/Plan DKA RESOLVED Chronic kidney disease stage 3b essential hypertension Obesity with a BMI of 30 lactic acid elevated secondary to DKA Anion gap metabolic acidosis resolved. cocaine AND THC ABUSE PCP ABUSE UTI TOXIC METABOLIC ENCEPHALOPATHY, RESOLVED Plan: start Lantus will start lisinopril and hctz for better bp control statin depening of lipid panel continue with diabetic diet diabetic education will check hba1c lipid panel for risk stratification further recommendations based on clinical course. DVT prophylaxis: lovenox ATTEND NARCOTICS ANONYMOUS DAILY AUGMENTIN 500MG PO BID X 10 DAYS D/C PLANNING 28 MIN History of Present Illness History of Present Illness Identification/Chief Complaint Chief Complaint I dont remember what happened Source Source: Chart review, Patient History of Present Illness History of Present Illness Patient is a 39 year old male with no past medical history who was brought to the Er after being found acting erratically as per bystanders. Patient was evaluated in the ED and found to be in DKA, he was subsequently admitted to the ICU and started on DKA protocol. Patient has b\resolved his electrolyte disturbance at the time of my note the patient is snoring quite loudly and seems to even have a pause in his breathing, He certainly has the body habitus for EMILY. Patient denies medical history at this time, he denies recent infections, he denies sick contacts, no polyuria, no polydipsia, no polyphagia. Patient does not take medications at home and this is his debut as a diabetic. He denies headache blurred vision, no dysphagia, no focal neurological deficits. No abdominal pain no nausea vomiting or diarrhea reported, no urinary symptoms, patient will be admitted for further treatment. Past Medical History Past Medical History denies past medical history Past Surgical History Past Surgical History: No pertinent history Family History Family History: No Significant Social History Smoke: No ALCOHOL: none FINAL DIAGNOSIS Problems Medical Problems: (1) Agitation requiring sedation protocol Status: Acute (2) SABA (acute kidney injury) Status: Acute (3) Diabetes mellitus, new onset Status: Acute (4) DKA (diabetic ketoacidoses) Status: Acute (5) Polysubstance abuse Status: Acute (6) UTI (urinary tract infection) Status: Acute Brief Hospital Course Mr. Lindquist is a 39 old [sex] who presented with [ ACUTE ENCEPHALOPATHY, DRUG ABUSE ] CONDITION AT DISCHARGE: Improved Discharge Medications Current Medications Ziprasidone (Geodon Im) 20 mg 1X ONCE IM Last administered on 04/24/20at 19:13; Start 04/24/20 at 19:15; Stop 04/24/20 at 19:16; Status DC Sodium Chloride 1,000 ml @ 1,000 mls/hr 1X ONCE IV Last administered on 04/24/20at 19:40; Start 04/24/20 at 19:30; Stop 04/24/20 at 20:29; Status DC Midazolam HCl (Versed) 4 mg 1X ONCE IV ; Start 04/24/20 at 21:00; Stop 04/24/20 at 21:01; Status DC Diphenhydramine HCl (Benadryl) 50 mg 1X ONCE IVP ; Start 04/24/20 at 21:00; Stop 04/24/20 at 21:01; Status DC Sodium Chloride 1,000 ml @ 1,000 mls/hr 1X ONCE IV Last administered on 04/24/20at 20:53; Start 04/24/20 at 21:00; Stop 04/24/20 at 21:59; Status DC Insulin Human Regular 100 ml @ 0 mls/hr 1X ONCE IV Last administered on 04/24/20at 22:03; Start 04/24/20 at 22:00; Stop 04/25/20 at 03:03; Status DC Ondansetron HCl (Zofran) 4 mg PRN Q8HRS PRN IV NAUSEA/VOMITING 1ST CHOICE; Start 04/24/20 at 22:00; Stop 04/25/20 at 21:59; Status DC Morphine Sulfate (Morphine Sulfate) 2 mg PRN Q2HR PRN IV SEVERE PAIN 7-10; Start 04/24/20 at 22:00; Stop 04/25/20 at 21:59; Status DC Sodium Chloride 1,000 ml @ 200 mls/hr 1X ONCE IV Last administered on 04/25/20at 03:13; Start 04/25/20 at 03:00; Stop 04/25/20 at 07:59; Status DC Metronidazole (Flagyl) 500 mg Q8HRS PO Last administered on 04/26/20at 06:10; Start 04/25/20 at 06:00 Insulin Human Lispro (HumaLOG) 0-9 UNITS TIDWMEALS SQ Last administered on 04/26/20at 08:59; Start 04/25/20 at 08:00 Dextrose (Dextrose 50%-Water Syringe) 12.5 gm PRN Q15MIN PRN IV SEE COMMENTS; Start 04/25/20 at 03:00 Labetalol HCl (Normodyne Iv Push) 10 mg PRN Q2HR PRN IVP HYPERTENSION; Start 04/25/20 at 03:00 Insulin Glargine (Lantus Syringe) 20 unit BID SQ Last administered on 04/26/20at 09:07; Start 04/25/20 at 09:00 Lisinopril (Prinivil) 20 mg DAILY PO Last administered on 04/26/20at 09:01; Start 04/25/20 at 09:00 Hydrochlorothiazide (Microzide) 12.5 mg DAILY PO Last administered on 04/26/20at 09:00; Start 04/25/20 at 09:00 Lactobacillus Rhamnosus (Culturelle) 1 cap BID PO Last administered on 04/26/20at 09:00; Start 04/25/20 at 21:00 Vital Signs Vital Signs Date Time Temp Pulse Resp B/P (MAP) Pulse Ox O2 Delivery O2 Flow Rate FiO2 04/26/20 09:01 80 124/71 04/26/20 08:25 Room Air 04/26/20 07:05 97.6 20 100 97.6 04/25/20 08:00 2.0 Labs Laboratory Tests Test 04/24/20 19:22 04/24/20 19:34 04/24/20 20:45 04/24/20 21:53 White Blood Count 14.4 x10^3/uL (4.0-11.0) Red Blood Count 6.28 x10^6/uL (4.30-5.70) Hemoglobin 17.2 g/dL (13.0-17.5) Hematocrit 54.8 % (39.0-53.0) Mean Corpuscular Volume 87 fL (79-100) Mean Corpuscular Hemoglobin 27 pg (25-35) Mean Corpuscular Hemoglobin Concent 31 g/dL (31-37) Red Cell Distribution Width 14.7 % (11.5-14.5) Platelet Count 315 x10^3/uL (140-400) Neutrophils (%) (Auto) 50 % (31-73) Lymphocytes (%) (Auto) 40 % (24-48) Monocytes (%) (Auto) 8 % (0-9) Eosinophils (%) (Auto) 1 % (0-3) Basophils (%) (Auto) 1 % (0-3) Neutrophils # (Auto) 7.1 x10^3/uL (1.8-7.7) Lymphocytes # (Auto) 5.8 x10^3/uL (1.0-4.8) Monocytes # (Auto) 1.2 x10^3/uL (0.0-1.1) Eosinophils # (Auto) 0.2 x10^3/uL (0.0-0.7) Basophils # (Auto) 0.2 x10^3/uL (0.0-0.2) Sodium Level 148 mmol/L (136-145) Potassium Level 4.6 mmol/L (3.5-5.1) Chloride Level 100 mmol/L (98-107) Carbon Dioxide Level 9 mmol/L (21-32) Anion Gap 39 (6-14) Blood Urea Nitrogen 16 mg/dL (8-26) Creatinine 2.0 mg/dL (0.7-1.3) Estimated GFR (Cockcroft-Gault) 44.8 BUN/Creatinine Ratio 8 (6-20) Glucose Level 307 mg/dL (70-99) Calcium Level 11.3 mg/dL (8.5-10.1) Total Bilirubin 0.2 mg/dL (0.2-1.0) Aspartate Amino Transf (AST/SGOT) 20 U/L (15-37) Alanine Aminotransferase (ALT/SGPT) 44 U/L (16-63) Alkaline Phosphatase 160 U/L (46-116) Creatine Kinase 472 U/L (39-308) Total Protein 10.3 g/dL (6.4-8.2) Albumin 4.7 g/dL (3.4-5.0) Albumin/Globulin Ratio 0.8 (1.0-1.7) Ethyl Alcohol Level < 10 mg/dL (0-10) Urine Collection Type U cath Urine Color Yellow Urine Clarity Clear Urine pH 5.5 (<5.0-8.0) Urine Specific [place] >=1.030 (1.000-1.030) Urine Protein 30 mg/dL (NEG-TRACE) Urine Glucose (UA) Negative mg/dL (NEG) Urine Ketones (Stick) Trace mg/dL (NEG) Urine Blood Negative (NEG) Urine Nitrite Negative (NEG) Urine Bilirubin Small (NEG) Urine Urobilinogen Dipstick 1.0 mg/dL (0.2 mg/dL) Urine Leukocyte Esterase Moderate (NEG) Urine RBC 1-2 /HPF (0-2) Urine WBC 20-40 /HPF (0-4) Urine Squamous Epithelial Cells Mod /LPF Urine Bacteria Few /HPF (0-FEW) Urine Hyaline Casts Occasional /HPF Urine Mucus Mod /LPF Urine Trichomonas Present Urine Opiates Screen Neg (NEG) Urine Methadone Screen Neg (NEG) Urine Barbiturates Neg (NEG) Urine Phencyclidine Screen Pos (NEG) Urine Amphetamine/Methamphetamine Neg (NEG) Urine Benzodiazepines Screen Neg (NEG) Urine Cocaine Screen Pos (NEG) Urine Cannabinoids Screen Pos (NEG) Urine Ethyl Alcohol Neg (NEG) Bedside Venous pH 7.25 (7.32-7.42) Bedside Venous pCO2 35 mmHg (41-51) Bedside Venous pO2 44 mmHg (20-40) Venous Blood HCO3 15 mmol/L (24-28) POC Venous O2 Saturation (Leo) 73 % Bedside FiO2 21 Phosphorus Level 2.1 mg/dL (2.6-4.7) Magnesium Level 3.5 mg/dL (1.8-2.4) Glucose (Fingerstick) 365 mg/dL (70-99) Test 04/24/20 23:11 04/25/20 00:10 04/25/20 00:18 04/25/20 01:23 Glucose (Fingerstick) 270 mg/dL (70-99) 194 mg/dL (70-99) 153 mg/dL (70-99) Sodium Level 140 mmol/L (136-145) Potassium Level 5.0 mmol/L (3.5-5.1) Chloride Level 104 mmol/L (98-107) Carbon Dioxide Level 25 mmol/L (21-32) Anion Gap 11 (6-14) Blood Urea Nitrogen 18 mg/dL (8-26) Creatinine 2.0 mg/dL (0.7-1.3) Estimated GFR (Cockcroft-Gault) 44.8 Glucose Level 201 mg/dL (70-99) Calcium Level 9.6 mg/dL (8.5-10.1) Test 04/25/20 01:47 04/25/20 02:26 04/25/20 04:57 04/25/20 06:00 Lactic Acid Level 2.2 mmol/L (0.4-2.0) 2.2 mmol/L (0.4-2.0) Glucose (Fingerstick) 141 mg/dL (70-99) Sodium Level 142 mmol/L (136-145) Potassium Level 4.4 mmol/L (3.5-5.1) Chloride Level 106 mmol/L (98-107) Carbon Dioxide Level 23 mmol/L (21-32) Anion Gap 13 (6-14) Blood Urea Nitrogen 18 mg/dL (8-26) Creatinine 2.0 mg/dL (0.7-1.3) Estimated GFR (Cockcroft-Gault) 44.8 Glucose Level 140 mg/dL (70-99) Hemoglobin A1c 7.6 % (4.8-5.6) Calcium Level 9.0 mg/dL (8.5-10.1) Triglycerides Level 227 mg/dL (0-150) Cholesterol Level 227 mg/dL (0-200) LDL Cholesterol, Calculated 144 mg/dL (0-100) VLDL Cholesterol, Calculated 45 mg/dL (0-40) Non-HDL Cholesterol Calculated 189 mg/dL (0-129) HDL Cholesterol 38 mg/dL (40-60) Cholesterol/HDL Ratio 6.0 Test 04/25/20 07:48 04/25/20 11:57 04/25/20 16:46 04/25/20 20:29 Glucose (Fingerstick) 157 mg/dL (70-99) 145 mg/dL (70-99) 213 mg/dL (70-99) 193 mg/dL (70-99) Test 04/26/20 08:55 Glucose (Fingerstick) 244 mg/dL (70-99) Laboratory Tests Test 04/25/20 11:57 04/25/20 16:46 04/25/20 20:29 04/26/20 08:55 Glucose (Fingerstick) 145 mg/dL (70-99) 213 mg/dL (70-99) 193 mg/dL (70-99) 244 mg/dL (70-99) Allergies Allergies Coded Allergies Type Severity Reaction Last Updated Verified No Known Drug Allergies 07/07/18 No Disposition/Orders: D/C to Home Justicifation of Admission Dx: Justifications for Admission: Justification of Admission Dx: N/A ROSALIND HARO MD Apr 26, 2020 11:23
[2020-04-26] MEDS ORDERED: AMOX1TAB10 PO (11:27)
[2020-04-26] MEDS ORDERED: INSU100V35 SQ (11:27)
[2020-04-26] MEDS ORDERED: LISI-130 PO (11:27)
[2020-04-26] MEDS ORDERED: INSU100V8 SQ (11:27)
[2020-04-26] MEDS ORDERED: HYDR12.575 PO (11:27)
[2020-04-26] MEDS ORDERED: LACT1CAP19 PO (11:27)
--- NOTE | 2020-04-26 11:28 | DISCH ---
DISCHARGE INSTRUCTIONS Condition on Discharge Condition on Discharge: Guarded Activity After Discharge Activity Instructions for Disc: Resume previous activity, Avoid exertion Lifting Instructions after Dis: No heavy lifting, No pulling or pushing Driving Instructions after Dis: Do not drive Diet after Discharge Diet after Discharge: Cardiac Liquid Texture: Thin Liquid Checks after Discharge Checks after discharge: Check blood press - daily Contacting the DRValente after DC Call your doctor for: If your condition worsens Warfarin Follow-Up Warfarin Follow UP: SEE PCP WEDNESDAY, ATTEND NARCOTICS ANONYMOUS DAILY ROSALIND HARO MD Apr 26, 2020 11:28
[2020-04-26] MEDS ORDERED: AMOXICILLIN/K CLAV 500/125MG TABLET. PO SCH (12:00)
--- NOTE | 2020-04-26 13:40 | NUR ---
Patient discharged home. RX sent to pharmacy. Patient verbalized understand discharge instruction.
== END 2020-04-26 13:40 | disposition home or self-care (01) | DRG 637 ==
LOC: ER 19:04 → 1 WEST ICU 22:00 → 4 NORTH 04-25 15:08
PROVIDERS: ADMIT Internal Medicine; ATTEND Internal Medicine
DX: E11.10 Type 2 diabetes mellitus with ketoacidosis without coma (principal); G92 Toxic encephalopathy; N17.9 Acute kidney failure, unspecified; N39.0 Urinary tract infection, site not specified; E66.9 Obesity, unspecified; I12.9 Hypertensive chronic kidney disease with stage 1 through stage 4 chronic kidney disease, or unspecified chronic kidney disease; E11.22 Type 2 diabetes mellitus with diabetic chronic kidney disease; N18.32 Chronic kidney disease, stage 3b; F12.10 Cannabis abuse, uncomplicated; F14.10 Cocaine abuse, uncomplicated; Z68.30 Body mass index [BMI] 30.0-30.9, adult; Z79.899 Other long term (current) drug therapy
CPT/HCPCS: 36415; 70450; 71045; 73080; 80048; 80053; 80061; 80307; 81001; 82550; 82803; 82962; 83036; 83605; 83735; 84100; 85025; 87040; 87086; 96361; 96372; G0480; J1815; J3486; J7030; 99291-25; G0378

== ENCOUNTER 2020-04-27 19:01 | Emergency (ER) | payer SELFPAY ==
[~2020-04-27] VITALS: Ht 185.4 cm; Wt 106.8 kg
[~2020-04-27 19:01] MED LIST: AMOX1TAB10 PO; HYDR12.575 PO; INSU100V35 SQ; INSU100V8 SQ; LACT1CAP19 PO; LISI-130 PO
[2020-04-27 19:55] LABS: BASO # 0.1 x10^3/uL (0.0-0.2); BASO % 1 % (0-3); EOS # 0.1 x10^3/uL (0.0-0.7); EOS % 1 % (0-3); HEMATOCRIT 46.6 % (39.0-53.0); HEMOGLOBIN 15.9 g/dL (13.0-17.5); LYMPH # 2.2 x10^3/uL (1.0-4.8); LYMPH % 23 % (24-48); MEAN CORPUSCULAR HEMOGLOBIN 27 pg (25-35); MEAN CORPUSCULAR HGB CONC 34 g/dL (31-37); MEAN CORPUSCULAR VOLUME 79 fL (79-100); MONO # 0.8 x10^3/uL (0.0-1.1); MONO % 8 % (0-9); NEUT # 6.6 x10^3/uL (1.8-7.7); NEUT % 68 % (31-73); PLATELET COUNT 274 x10^3/uL (140-400); RED CELL DISTRIBUTION WIDTH 13.6 % (11.5-14.5); WHITE BLOOD COUNT 9.7 x10^3/uL (4.0-11.0)
--- NOTE | 2020-04-27 19:55 | PHYS DOC ---
Past Medical History Past Medical History: No Pertinent History (CHRIS TERRY JUVENILE DETENTION OFFICER) Past Surgical History: No Surgical History (CHRIS TERRY JUVENILE DETENTION OFFICER) Smoking Status: Current Every Day Smoker Alcohol Use: Rarely Drug Use: Phencyclidine (CHRIS TERRY JUVENILE DETENTION OFFICER) General Adult EDM: Chief Complaint: NEAR SYNCOPE HPI: HPI: Patient is a 39 year old female who presents with today he began feeling lightheaded so he ate some food thinking his blood sugar was low but states it was not getting much better so he decided come to emergency room. Patient was hospitalized here at [facility] from April 24 through April 26. He was discharged with SABA, DKA and PSA. Patient was sent home on Augmentin, hydrochlorothiazide, lisinopril and 2 different insulins. He states that he does not have a blood glucose monitor at home and did not have a prescription for it so he is unable to check his blood sugars. Patient states that previously a year or more ago he had been on blood pressure medication but never refilled them so he had not been on blood pressure medication for over a year when starting these blood pressure medications. His vital signs are within normal limits. Patient's blood sugar blood sugar is 269 in the ED. Patient denies chest pain, shortness of breath, abdominal pain, nausea, vomiting, diarrhea, fever, fall, syncope, vision changes, numbness or tingling, focal weakness. Patient has a history of PCP use, hypertension, new onset diabetes, cocaine use, marijuana use. (CHRIS TERRY JUVENILE DETENTION OFFICER) Review of Systems: Review of Systems: Constitutional: Denies fever or chills. [] Eyes: Denies change in visual acuity. [] HENT: Denies nasal congestion or sore throat. [] Respiratory: Denies cough or shortness of breath. [] Cardiovascular: Denies chest pain or edema. [] GI: Denies abdominal pain, nausea, vomiting, bloody stools or diarrhea. [] : Denies dysuria. [] Musculoskeletal: Denies back pain or joint pain. [] Integument: Denies rash. [] Neurologic: Denies headache, focal weakness or sensory changes. Lightheadedness. [] Endocrine: Denies polyuria or polydipsia. [] Lymphatic: Denies swollen glands. [] Psychiatric: Denies depression or anxiety. [] (JENNIFERCHRIS ALEX JUVENILE DETENTION OFFICER) Heart Score: Risk Factors: Risk Factors: DM, Current or recent (<one month) smoker, HTN, HLP, family history of CAD, obesity. Risk Scores: Score 0 - 3: 2.5% MACE over next 6 weeks - Discharge Home Score 4 - 6: 20.3% MACE over next 6 weeks - Admit for Clinical Observation Score 7 - 10: 72.7% MACE over next 6 weeks - Early Invasive Strategies ([facility]) Allergies: Allergies: Allergies Coded Allergies Type Severity Reaction Last Updated Verified No Known Drug Allergies 07/07/18 No ([facility] JUV[facility]ILE DETENTION OFFICER) Physical Exam: PE: Constitutional: Well developed, well nourished, no acute distress, non-toxic appearance. [] HENT: Normocephalic, atraumatic, bilateral external ears normal, oropharynx moist, no oral exudates, nose normal. [] Eyes: PERRLA, EOMI, conjunctiva normal, no discharge. [] Neck: Normal range of motion, no tenderness, supple, no stridor. [] Cardiovascular:Heart rate regular rhythm, no murmur [] Lungs & Thorax: Bilateral breath sounds clear to auscultation [] Abdomen: Bowel sounds normal, soft, no tenderness, no masses, no pulsatile masses. [] Skin: Warm, dry, no erythema, no rash. [] Back: No tenderness, no CVA tenderness. [] Extremities: No tenderness, no cyanosis, no clubbing, ROM intact, no edema. [] Neurologic: Alert and oriented X 3, normal motor function, normal sensory function, no focal deficits noted. [] Psychologic: Affect normal, judgement normal, mood normal. Normal physical exam [] ([facility] JUVENILE DETENTION OFFICER) Current Patient Data: Labs: Laboratory Tests Test 04/27/20 19:33 Glucose (Fingerstick) 269 mg/dL (70-99) H ([facility] JUVENILE DETENTION OFFICER) EKG: EK and read by Dr Solis as Sinus Rhythm and no STEMI[] ([facility]) Radiology/Procedures: Radiology/Procedures: [] Impression: [facility] [address] [place] [address] IMAGING REPORT Signed PATIENT: ANASTASIA RICHMOND: [id number] : 1980 LOCATION: ER AGE: 39 SEX: M EXAM STATUS: PRE ER ORD. PHYSICIAN: CHRIS TERRY APRN REASON: DIZZINESS PROCEDURE: PORTABLE CHEST 1V PORTABLE CHEST 1V Clinical Indication: Reason: DIZZINESS Comparison: AP chest April 24, 2020. Findings: The cardiomediastinal silhouette is normal. Lungs are clear. There is no pneumothorax. No pleural effusion is appreciated. No acute bone abnormality. IMPRESSION: No acute cardiopulmonary process. Electronically signed by: Ryan Hanley MD (04/27/2020 7:58 PM) [facility] DICTATED and SIGNED BY: RYAN HANLEY MD DATE: 04/27/201957 (CHRIS TERRY APRN) Course & Med Decision Making: Course & Med Decision Making Pertinent Labs and Imaging studies reviewed. (See chart for details) See HPI. Patient is alert and oriented x4. Ambulatory with a steady gait. Speaks in full complete sentences. No extremity swelling. Vital signs are within normal limits. Patient states he is been taking all the medications he was prescribed. Patient denies recent PCP, cocaine, marijuana use. Patient has liver enzyme elevation of which is new from 04/24. Patient denies any abdominal pain and has no abdominal tenderness. CT head is normal. Chest x-ray is normal. Blood work is otherwise normal. Vital signs remained stable. Orthostatics are normal. I have discussed this patient with Dr Solis and the care plan. He states the patient can follow up with primary care provider as ricardo n as possible. Creatinine remains at baseline. Patient is likely experiencing some light headedness due to the new blood pressure medication he has began. Blood sugar remains stable. I have given the patient a prescription for a glucometer and blood glucose strips. We have also given him a pamphlet of resources for a follow-up care primary care doctor. Patient states he is feeli ng better. [] (CHRIS TERRY APRN) Dragon Disclaimer: Dragon Disclaimer: This electronic medical record was generated, in whole or in part, using a voice recognition dictation system. (CHRIS TERRY APRN) Departure Departure Impression: Primary Impression: Lightheaded Disposition: 01 DC HOME SELF CARE/HOMELESS Condition: STABLE Referrals: NO PCP (PCP) Patient Instructions: Blood Sugar Monitoring, Adult, Dizziness, [id number], Form - Blood Pressure Record Sheet, How to Take Your Blood Pressure, [id number], Managing Your High Blood Pressure Additional Instructions: Follow-up with primary care provider as soon as possible so drink plenty of fl uids. Continue taking your medication as prescribed. Keep track of your blood pressures. Keep track of your blood sugars. If symptoms worsen return to the emergency room. Attending Signature Attending Signature I have reviewed the PA/KAIAKO KOHANGA REO's note and plan of care. I was available for consultation as needed during the patient's visit in the emergency department. I agree with the clinical impression, plan, and disposition. (GABRIELA SOLIS DO) CHRIS TERRY APRN Apr 27, 2020 19:55 GABRIELA SOLIS DO Apr 27, 2020 23:09
--- NOTE | 2020-04-27 20:02 | RAD ---
PORTABLE CHEST 1V Clinical Indication: Reason: DIZZINESS Comparison: AP chest April 24, 2020. Findings: The cardiomediastinal silhouette is normal. Lungs are clear. There is no pneumothorax. No pleural effusion is appreciated. No acute bone abnormality. IMPRESSION: No acute cardiopulmonary process. Electronically signed by: Ryan Hanley MD (04/27/2020 7:58 PM) [facility]
[2020-04-27 20:04] LABS: CALCIUM 9.6 mg/dL (8.5-10.1); CREATININE 1.9 mg/dL (0.7-1.3); GFR 47.5; POTASSIUM 4.5 mmol/L (3.5-5.1)
[2020-04-27 20:10] LABS: ALBUMIN 3.6 g/dL (3.4-5.0); ALBUMIN/GLOBULIN RATIO 0.8 (1.0-1.7); TOTAL BILIRUBIN 0.5 mg/dL (0.2-1.0); TOTAL PROTEIN 8.2 g/dL (6.4-8.2)
[2020-04-27 20:48] LABS: BILIRUBIN,URINE NEGATIVE (NEG); CLARITY,URINE CLEAR; COLOR,URINE YELLOW; NITRITE,URINE NEGATIVE (NEG); PROTEIN,URINE NEGATIVE (NEG-TRACE)
[2020-04-27 20:54] LABS: BARBITURATES NEG (NEG); BENZODIAZEPINES NEG (NEG); CANNABINOIDS NEG (NEG); COCAINE POS (NEG); METHADONE NEG (NEG); OPIATES NEG (NEG); PHENCYCLIDINE POS (NEG)
[2020-04-27 20:55] LABS: AMPHETAMINE/METHAMPHETAMINE NEG (NEG); HYALINE CASTS, URINE FEW /HPF
[2020-04-27 20:57] LABS: BACTERIA,URINE 0 /HPF (0-FEW)
[2020-04-27 21:30] LABS: PROTHROMBIN TIME PATIENT 12.6 SEC (11.7-14.0)
[2020-04-27 21:39] VITALS: BP 128/84
--- NOTE | 2020-04-28 05:40 | EKG ---
[facility] [address] [place] [address] Test Date: 2020-04-27 Test Time: 19:37:10 Pat Name: ROSALIA RICHMOND Department: Room: Gender: M Refrigeration Specialist: FLORECITA : 1980 Requested By: CHRIS TERRY Order Number: [id number] Reading MD: Terrell Mcneal MD Measurements Intervals [place] Rate: 100 P: 54 TX: 128 QRS: 79 QRSD: 74 T: 12 QT: 326 QTc: 423 Interpretive Statements SINUS RHYTHM Electronically Signed On 04-29-2020 14:12:17 CDT by Terrell Mcneal MD
== END 2020-04-27 21:39 | disposition home or self-care (01) ==
LOC: ER 19:01
DX: R42 Dizziness and giddiness (principal); F17.200 Nicotine dependence, unspecified, uncomplicated; F19.90 Other psychoactive substance use, unspecified, uncomplicated
CPT/HCPCS: 36415; 71045; 80053; 80307; 81001; 82962; 83690; 84484; 85025; 85610; 87086; 93005; 99285

== ENCOUNTER 2021-11-09 16:15 | Emergency (ER) | payer SELFPAY ==
[~2021-11-09] VITALS: Ht 185.4 cm; Wt 98.3 kg
[2021-11-09] MEDS ORDERED: IV NORMAL SALINE 1000ML BAG 1,000 ML IV ONE ×2 (17:45→20:15)
[2021-11-09] MEDS ORDERED: methylPREDNISolone SOD SUCC PF 125 MG/2 ML VIAL. IV ONE (17:45)
--- NOTE | 2021-11-09 17:57 | PHYS DOC ---
Past Medical History Past Medical History: Diabetes-Type II, Hypertension Past Surgical History: Other Additional Past Surgical Histo: "BROKEN ANKLE SX" Smoking Status: Current Every Day Smoker Alcohol Use: Occasionally Drug Use: Phencyclidine General Adult EDM: Chief Complaint: SORE THROAT HPI: HPI: Patient is a 41 year old male who presents with 4 days of sore throat mainly on the left side. He states that last night he got to the point where he could not swallow his saliva. Patient denies fever, chills, abdominal pain, nausea, vomit ing, diarrhea, cough, shortness of breath, chest pain, headache, dizziness, focal weakness, body aches. Patient rating his pain a 9 out of 10. Has a history of hypertension, diabetes, DKA, smoking, PCP use. Review of Systems: Review of Systems: Constitutional: Denies fever or chills. [] Eyes: Denies change in visual acuity. [] HENT: Denies nasal congestion or +sore throat. +Unable to swallow saliva[] Respiratory: Denies cough or shortness of breath. [] Cardiovascular: Denies chest pain or edema. [] GI: Denies abdominal pain, nausea, vomiting, bloody stools or diarrhea. [] : Denies dysuria. [] Musculoskeletal: Denies back pain or joint pain. [] Integument: Denies rash. [] Neurologic: Denies headache, focal weakness or sensory changes. [] Endocrine: Denies polyuria or polydipsia. [] Lymphatic: Denies swollen glands. [] Psychiatric: Denies depression or anxiety. [] Heart Score: C/O Chest Pain: No Current Medications: Current Medications Medications (Trade) Dose Ordered Sig/Jose Start Time Stop Time Status Last Admin Dose Admin Methylprednisolone Sodium Succinate (SOLU-Medrol 125MG VIAL) 125 mg 1X ONCE 11/09/21 17:45 11/09/21 17:48 DC Sodium Chloride 1,000 ml @ 1,000 mls/hr 1X ONCE 11/09/21 17:45 11/09/21 18:44 Allergies: Allergies: Allergies Coded Allergies Type Severity Reaction Last Updated Verified No Known Drug Allergies 07/07/18 No Physical Exam: PE: Constitutional: Well developed, well nourished, no acute distress, non-toxic appearance. [] HENT: Normocephalic, atraumatic, bilateral external ears normal, oropharynx moist, no oral exudates, nose normal. Large swelling of tonsil with uvula pushed over to the right. [] Eyes: PERRLA, EOMI, conjunctiva normal, no discharge. [] Neck: Normal range of motion, left neck tenderness, supple, no stridor. [] Cardiovascular:Heart rate regular tachycardia rhythm, no murmur [] Lungs & Thorax: Bilateral breath sounds clear to auscultation [] Abdomen: Bowel sounds normal, soft, no tenderness, no masses, no pulsatile ma sses. [] Skin: Warm, dry, no erythema, no rash. [] Back: No tenderness, no CVA tenderness. [] Extremities: No tenderness, no cyanosis, no clubbing, ROM intact, no edema. [] Neurologic: Alert and oriented X 3, normal motor function, normal sensory function, no focal deficits noted. [] Psychologic: Affect normal, judgement normal, mood normal. [] Current Patient Data: Vital Signs: Vital Signs Date Time Temp Pulse Resp B/P (MAP) Pulse Ox O2 Delivery O2 Flow Rate FiO2 11/09/21 17:25 98.1 128 20 141/85 (103) 98 Room Air 98.1 EKG: EKG: [] Radiology/Procedures: Radiology/Procedures: [] Impression: [facility] [address] [place], [place] [id number] IMAGING REPORT Signed PATIENT: ROSALIA RICHMOND DACCOUNT: [id number] : 1980 LOCATION: ER AGE: 41 SEX: M EXAM STATUS: REG ER ORD. PHYSICIAN: CHRIS TERRY APRN REASON: left neck pain and swelling. Can not swallow saline PROCEDURE: CT SOFT TISSUE NECK W/CONTRAST CT neck with contrast History: Left neck pain and swelling and cannot swallow Axial helical images of the neck were obtained after the administration of 70 cc IV Omnipaque 300 contrast. Axial coronal and sagittal reconstruction was performed for a CT soft tissues neck with contrast. Findings: There is a loculated thin-walled fluid collection in the left tonsil that m easures 4.0 x 3.5 x 7.0 cm. This pushes the oropharynx to the right. There is no prevertebral soft tissue swelling. The thyroid appears normal. Straightening of the normal cervical lordosis is seen. There is degenerative changes of the C-spine with multilevel central neural femoral stenosis. Impression: Left palatine tonsillar abscess. End of impression These results were called to Dr. TERRY and verified by read back at 8:38 PM. PQRS Compliance Statement: One or more of the following individualized dose reduction techniques were utilized for this examination: 1. Automated exposure control 2. Adjustment of the mA and/or kV according to patient size 3. Use of iterative reconstruction technique Electronically signed by: Anita Matthews III, MD (11/09/2021 8:43 PM) [facility] DICTATED and SIGNED BY: ANITA MATTHEWS III, MD DATE: 11/09/212036 Course & Med Decision Making: Course & Med Decision Making Pertinent Labs and Imaging studies reviewed. (See chart for details) See HPI. Alert and oriented x4. Ambulatory steady gait. Speaks in full clear sentences but is muffled. Patient unable to swallow saliva. No trismus. Uvula appears pushed to the right and the left side of the throat is very swollen 3+. Cannot see exudates or an abscess at this time. He has tachycardic. He is afebrile. Patient is given Solu-Medrol, Toradol, 2L NS, Zosyn in the ED. White count is 17. Rapid COVID and flu and strep are negative. Mononucleosis is negative. I did have Dr. Wiseman go and examine the patient. Patient does have a large peritonsillar abscess. We do not have ENT capabilities at this hospital. Patient is currently maintaining his airway without any distress. I have called the [facility] transfer line and patient is excepted to [facility]. I did go over this with the patient and he states that he is fine with going to [facility]. Images have been clouded over to [facility] facilities. Patient admitted to Dr Quezada at [facility]. I gave report to the attending physicians Nurse Practitioner. [] Lisette Disclaimer: Lisette Disclaimer: This electronic medical record was generated, in whole or in part, using a voice recognition dictation system. Departure Departure Impression: Primary Impression: Abscess, peritonsillar Disposition: 02 SHORT TERM HOSPITAL ([facility]) Condition: STABLE Referrals: NO PCP (PCP) CHRIS TERRY GLEASON OPERATOR Nov 09, 2021 17:57
[2021-11-09 18:45] LABS: BASO # 0.1 x10^3/uL (0.0-0.2); BASO % 0 % (0-3); EOS % 0 % (0-3); HEMATOCRIT 43.2 % (39.0-53.0); HEMOGLOBIN 14.6 g/dL (13.0-17.5); LYMPH # 2.1 x10^3/uL (1.0-4.8); LYMPH % 12 % (24-48); MEAN CORPUSCULAR HEMOGLOBIN 27 pg (25-35); MEAN CORPUSCULAR HGB CONC 34 g/dL (31-37); MEAN CORPUSCULAR VOLUME 79 fL (79-100); MONO # 1.5 x10^3/uL (0.0-1.1); MONO % 9 % (0-9); NEUT # 13.4 x10^3/uL (1.8-7.7); NEUT % 79 % (31-73); PLATELET COUNT 370 x10^3/uL (140-400); RED BLOOD COUNT 5.46 x10^6/uL (4.30-5.70); RED CELL DISTRIBUTION WIDTH 13.1 % (11.5-14.5)
[2021-11-09] MEDS ORDERED: diphenhydrAMINE 50 MG/ML VIAL IVP ONE (18:45)
[2021-11-09] MEDS ORDERED: KETOROLAC 30 MG/ML VIAL. IVP ONE (18:45)
[2021-11-09 19:00] LABS: INFLUENZA A PATIENT NEGATIVE (NEGATIVE); INFLUENZA B PATIENT NEGATIVE (NEGATIVE)
[2021-11-09] MEDS ORDERED: PIPERACILLIN/TAZOBACTAM 3.375 GM in IV NORMAL SALINE 50ML 50 ML IV ONE (19:00)
[2021-11-09 19:19] LABS: MONONUCLEOSIS PATIENT NEGATIVE (NEGATIVE)
[2021-11-09 19:55] LABS: CALCIUM 8.9 mg/dL (8.5-10.1); CREATININE 1.2 mg/dL (0.7-1.3); POTASSIUM 4.3 mmol/L (3.5-5.1)
[2021-11-09 20:00] LABS: ALBUMIN 3.1 g/dL (3.4-5.0); ALBUMIN/GLOBULIN RATIO 0.5 (1.0-1.7); TOTAL BILIRUBIN 0.7 mg/dL (0.2-1.0); TOTAL PROTEIN 8.8 g/dL (6.4-8.2)
[2021-11-09] MEDS ORDERED: IOHEXOL 300 MG/ML 100ML VIAL. IV ONE (20:15)
[2021-11-09] MEDS ORDERED: CONTRAST GIVEN. MC PRN (20:30)
--- NOTE | 2021-11-09 20:46 | RAD ---
CT neck with contrast History: Left neck pain and swelling and cannot swallow Axial helical images of the neck were obtained after the administration of 70 cc IV Omnipaque 300 con trast. Axial coronal and sagittal reconstruction was performed for a CT soft tissues neck with contra st. Findings: There is a loculated thin-walled fluid collection in the left tonsil that measures 4.0 x 3.5 x 7.0 cm . This pushes the oropharynx to the right. There is no prevertebral soft tissue swelling. The thyroid appears normal. Straightening of the sylwia l cervical lordosis is seen. There is degenerative changes of the C-spine with multilevel central neural femoral stenosis. Impression: Left palatine tonsillar abscess. End of impression These results were called to Dr. TERRY and verified by read back at 8:38 PM. PQRS Compliance Statement: One or more of the following individualized dose reduction techniques were utilized for this examinat ion: 1. Automated exposure control 2. Adjustment of the mA and/or kV according to patient size 3. Use of iterative reconstruction technique Electronically signed by: Allen Ledbetter III, MD (11/09/2021 8:43 PM) [facility]
[2021-11-10 00:44] VITALS: BP 128/79
== END 2021-11-10 04:22 | disposition short-term general hospital (02) ==
LOC: ER 16:15
DX: J02.9 Acute pharyngitis, unspecified (principal); Z20.822 Contact with and (suspected) exposure to COVID-19; E11.9 Type 2 diabetes mellitus without complications; I10 Essential (primary) hypertension; F17.200 Nicotine dependence, unspecified, uncomplicated
CPT/HCPCS: 36415; 70491; 80053; 83605; 85025; 86308; 87040; 87070; 87428; 87880; 96361; 96365; 96375; 99285; J1200; J1885; J2543; J2930; J7030; Q9967